=== PATIENT | male | born 1985 | race Caucasian/White ===

== ENCOUNTER 2022-03-06 00:57 | Inpatient (IN) | payer MEDICAID ==
[~2022-03-06] VITALS: Ht 165.1 cm; Wt 74.8 kg
--- NOTE | 2022-03-06 01:52 | NUR ---
BIBFAMILY TO ER BED 13. AAOX3. NOT IN RESP DISTRESS. AMBULATORY. BROUGHT IN FOR SHAKINESS AFTER PT HAS BEEN BINGE DRIKING FOR THE PAST WEEK. PT'S LAST DRINK WAS AT 1900. PT IS INDEEDNOTD SHAKING. PT IS ALSO CONCERNED OF MULTIPLE LESIONS ON HIS BILAT HAND AND LEG - DRY SCABBY. AWAITING MD FOR EVAL.
--- NOTE | 2022-03-06 02:20 | NUR ---
BLOOD COLLECTED AND SENT TO LAB
--- NOTE | 2022-03-06 02:20 | NUR ---
EMT @ BEDSIDE FOR EKG
--- NOTE | 2022-03-06 02:20 | NUR ---
COVID SWAB DONE AND SENT TO LAB
[2022-03-06] MEDS ORDERED: MULTIVIT W/MINERALS 1 TAB TABLET ONE ×2 (02:23→09:29)
[2022-03-06] MEDS ORDERED: Thiamine 100 MG/ML VIAL ONE ×2 (02:23→05:07)
[2022-03-06] MEDS ORDERED: CHLORDIAZEPOXIDE HCL 25 MG CAPSULE ONE (02:23)
[2022-03-06] MEDS ORDERED: ONDANSETRON HCL/PF 4 MG/2 ML VIAL ONE (02:23)
[2022-03-06] MEDS ORDERED: ONDANSETRON 4 MG TAB.RAPDIS ONE (02:24)
[2022-03-06] MEDS ORDERED: LORAZEPAM INJ 2 MG/ML VIAL ONE (02:24)
[2022-03-06 02:30] LABS: BASOPHILS # (AUTO) 0.1 K/uL (0.0-0.2); EOSINOPHILS % (AUTO) 0.6 % (0.0-6.0); HEMATOCRIT 38 % (39-51); HEMOGLOBIN 12.8 g/dL (13.5-17.5); LYMPHOCYTES # (AUTO) 2.2 K/uL (0.8-4.8); LYMPHOCYTES % (AUTO) 23.6 % (20.0-44.0); MEAN CORPUSCULAR HGB CONC 34 g/dl (31.0-36.0); MEAN CORPUSCULAR VOLUME 85 fL (80-96); MONOCYTES # (AUTO) 0.6 K/uL (0.1-1.30); MONOCYTES % (AUTO) 6.6 % (2.0-12.0); NEUTROPHILS # (AUTO) 6.2 K/uL (1.8-8.9); NEUTROPHILS % (AUTO) 68.2 % (43.0-81.0); PLATELET COUNT (AUTO) 301 K/uL (150-450); RED BLOOD CELL COUNT(AUTO) 4.44 MIL/uL (4.5-6.0); WHITE BLOOD COUNT (AUTO) 9.1 K/uL (4.3-11.0)
[2022-03-06] MEDS ORDERED: CHLORDIAZEPOXIDE HCL 25 MG CAPSULE PO ONE (02:30)
[2022-03-06] MEDS ORDERED: LORAZEPAM INJ 2 MG/ML VIAL IVP ONE (02:30)
[2022-03-06] MEDS ORDERED: ONDANSETRON HCL/PF 4 MG/2 ML VIAL IVP ONE (02:30)
[2022-03-06] MEDS ORDERED: ONDANSETRON 4 MG TAB.RAPDIS PO ONE (02:30)
[2022-03-06] MEDS ORDERED: Thiamine 100 MG in IV D5W 50 ML IV SCH ×2 (02:30→03:00)
[2022-03-06] MEDS ORDERED: MULTIVITAMINS,THERAGRAN 1 UDTAB TABLET PO SCH (02:30)
[2022-03-06] MEDS ORDERED: IV D5 LR 1,000 ML IV ONE (02:30)
[2022-03-06 02:43] LABS: CARBON DIOXIDE 26 mmol/L (21-32); CHLORIDE 100 mmol/L (98-107); CREATININE 0.9 mg/dL (0.6-1.3); GLUCOSE 184 mg/dL (74-106); POTASSIUM 3.6 mmol/L (3.5-5.1); SODIUM SERUM 138 mmol/L (136-145); UREA NITROGEN, BLOOD 11 mg/dL (7-18)
[2022-03-06 02:49] LABS: ALANINE AMINOTRANSFERASE 28 U/L (12-78); ALBUMIN 3.1 g/dL (3.4-5.0); ALCOHOL, BLOOD 299 mg/dL (0-0); ALKALINE PHOSPHATASE 138 U/L (46-116); ASPARTATE AMINOTRANSFERASE 29 U/L (15-37); BILIRUBIN,DIRECT 0.1 mg/dL (0.0-0.2); BILIRUBIN,TOTAL 0.2 mg/dL (0.2-1.0); TOTAL PROTEIN, SERUM 7.1 g/dL (6.4-8.2)
[2022-03-06 02:51] LABS: ACETAMINOPHEN < 2 ug/ml (10-30)
[2022-03-06] MEDS ORDERED: MAGNESIUM HYDROXIDE 30 ML UDC PO PRN (03:00)
[2022-03-06] MEDS ORDERED: ACETAMINOPHEN 325 MG TABLET PO PRN (03:00)
[2022-03-06] MEDS ORDERED: ONDANSETRON HCL/PF 4 MG/2 ML VIAL IVP PRN (03:00)
[2022-03-06] MEDS ORDERED: MAG HYDROX/AL HYDROX/SIMETH 30 ML UDC PO PRN (03:00)
[2022-03-06] MEDS ORDERED: LORAZEPAM INJ 2 MG/ML VIAL IV PRN (03:00)
[2022-03-06] MEDS ORDERED: IV D5/0.45 NACL 1,000 ML IV PRN (03:00)
[2022-03-06] MEDS ORDERED: Z GUARD REMEDY 4 OZ OINT TP PRN (03:00)
[2022-03-06 03:12] LABS: CREATINE KINASE, TOTAL 268 U/L (39-308)
--- NOTE | 2022-03-06 04:22 | NUR ---
CALLED STAT RAD FOR IMAGING READ
[2022-03-06 05:29] LABS: BASOPHILS # (AUTO) 0.1 K/uL (0.0-0.2); BASOPHILS % (AUTO) 1.1 % (0.0-2.0); EOSINOPHILS % (AUTO) 0.8 % (0.0-6.0); HEMATOCRIT 37 % (39-51); HEMOGLOBIN 12.6 g/dL (13.5-17.5); LYMPHOCYTES # (AUTO) 1.4 K/uL (0.8-4.8); LYMPHOCYTES % (AUTO) 20.1 % (20.0-44.0); MEAN CORPUSCULAR HGB CONC 34 g/dl (31.0-36.0); MEAN CORPUSCULAR VOLUME 85 fL (80-96); MONOCYTES # (AUTO) 0.5 K/uL (0.1-1.30); MONOCYTES % (AUTO) 7.5 % (2.0-12.0); NEUTROPHILS # (AUTO) 4.9 K/uL (1.8-8.9); NEUTROPHILS % (AUTO) 70.5 % (43.0-81.0); PLATELET COUNT (AUTO) 287 K/uL (150-450); RED BLOOD CELL COUNT(AUTO) 4.37 MIL/uL (4.5-6.0)
[2022-03-06 05:43] LABS: BILIRUBIN,TOTAL 0.3 mg/dL (0.2-1.0); CALCIUM, SERUM 8.1 mg/dL (8.5-10.1); CREATININE 0.8 mg/dL (0.6-1.3); PHOSPHORUS 4.2 mg/dL (2.5-4.9)
[2022-03-06 05:52] LABS: THYROID STIMULATING HORMONE 3.343 uIU/mL (0.358-3.74)
[2022-03-06] MEDS ORDERED: PANTOPRAZOLE 40 MG VIAL ONE (09:29)
[2022-03-06] MEDS ORDERED: FOLIC ACID 1 MG TABLET ONE (09:29)
[2022-03-06] MEDS: FOLIC ACID 1 MG TABLET PO SCH (09:34)
[2022-03-06] MEDS: MULTIVIT W/MINERALS 1 TAB TABLET PO SCH (09:34)
[2022-03-06] MEDS: PANTOPRAZOLE 40 MG VIAL IV SCH (09:34)
--- NOTE | 2022-03-06 09:42 | NUR ---
BED GIVEN 309-1
--- NOTE | 2022-03-06 10:11 | NUR ---
WOUND CARE CONSULT: PT SEEN FOR CONSULT THAT READ "HAND LESIONS". DRY SCAB NOTED TO RT HAND WITHOUT FLUCTUANCE, TENDERNESS, ERYTHEMA OR DRAINAGE. PT COMPLAINS OF PAINFUL LESIONS ON HIS FEET. FEET NOTED TO HAVE CRUSTED LESIONS AND REDNESS. DPM CONSULT CALLED TO DR HAMPAPUR. PICHARDO IN AGREEMENT WITH PLAN OF CARE.
--- NOTE | 2022-03-06 10:15 | NUR ---
SW met with pt. at bedside for alcohol abuse. The pt. is asleep and not rousable to verbal cues. Per EMR, pt. to be admitted to Med Surg. SW will follow up at a later time.
--- NOTE | 2022-03-06 12:15 | NUR ---
KEYSMITH NOTES PATIENT ADMITTED FROM ER , REPORT GIVEN BY ASA LO. ALERT ORIENTED X 4, CALM, NO TREMORS NOTED. NO ACUTE DISTRESS NOTED, BREATHING UNLABORED.ORIENTED TO THE ROOM. SAFETY PRECAUTIONS IN PLACE. BED IN LOWEST LOCKED POSITION, HOB ELEVATED, SIDE RAILS UP X2. CALL LIGHT WITHIN REACH. WILL CONTINUE TO MONITOR ACCORDINGLY.
[2022-03-06 16:00] VITALS: BP 106/68
[2022-03-06] MEDS: CLOTRIMAZOLE/BETAMETASONE DIPROPIONATE 15 GM TUBE TP SCH (17:47)
--- NOTE | 2022-03-06 19:00 | NUR ---
RN CLOSING NOTES PATIENT ALERT ORIENTED X 4, CALM, NO TREMORS NOTED. NO ACUTE DISTRESS NOTED, BREATHING UNLABORED.HEAD OF BED ELEVATED. NEEDS ATTENDED AND ANTICIPATED. SAFETY PRECAUTIONS IN PLACE. BED IN LOWEST LOCKED POSITION, HOB ELEVATED, SIDE RAILS UP X3. CALL LIGHT WITHIN REACH. WILL ENDORSE TO NIGHT NURSE FOR CONTINUITY OF CARE.
--- NOTE | 2022-03-06 19:39 | NUR ---
RN CRISTOPHER NOTES PATIENT ALERT ORIENTED X 4, CALM, NO TREMORS NOTED.ON RM AIR CHAUNCEY WELL. NO SIGN SOB/DISTRESS NOTED. BREATHING EVEN UNLABORED.RAC #18G INTACT/PATENT. SAFETY PRECAUTIONS IN PLACE. BED IN LOWEST LOCKED POSITION, HOB ELEVATED, SIDE RAILS UP X3. CALL LIGHT WITHIN REACH. WILL CONTINUE TO MONITOR.
[2022-03-06 20:00] VITALS: BP 121/66
[2022-03-07] VITALS: BP 125/67
[2022-03-07 04:00] VITALS: BP 102/62
--- NOTE | 2022-03-07 07:08 | NUR ---
RN CLOSING NOTES TELE. PATIENT BED ALERT ORIENTED X 4, CALM,ON RM AIR CHAUNCEY WELL. NO SIGN SOB/DISTRESS NOTED. BREATHING EVEN UNLABORED.IV LINE RAC #18G INTACT/PATENT. NO TREMOR NOTED.SAFETY PRECAUTIONS IN PLACE. BED IN LOWEST LOCKED POSITION, HOB ELEVATED, SIDE RAILS UP X3. CALL LIGHT WITHIN REACH. WILL ENDORSED
[2022-03-07 08:00] VITALS: BP 114/77
--- NOTE | 2022-03-07 09:26 | NUR ---
WOUND CARE CONSULT/FOLLOW UP: RECEIVED SECOND CONSULT FOR SCAB ON RT HAND. SCAB IS DRY, NO DRAINAGE, ERYTHEMA OR TENDERNESS NOTED. OBSERVE AREA DAILY. WILL SEE PRN.
[2022-03-07] MEDS: MULTIVIT W/MINERALS 1 TAB TABLET PO SCH (10:24)
[2022-03-07] MEDS: THIAMINE HCL 100 MG TABLET PO SCH (10:24)
[2022-03-07] MEDS: PANTOPRAZOLE 40 MG VIAL IV SCH (10:24)
[2022-03-07] MEDS: FOLIC ACID 1 MG TABLET PO SCH (10:24)
[2022-03-07] MEDS: CLOTRIMAZOLE/BETAMETASONE DIPROPIONATE 15 GM TUBE TP SCH ×2 (10:34→17:05)
[2022-03-07 12:00] VITALS: BP 122/68
--- NOTE | 2022-03-07 12:37 | NUR ---
"JAZMYNE Note: Pt. Is a 36-year-old male who demonstrates adequate insight to the reason for hospitalization. Per pt., he presents to the hospital for ETOH. Pt. was oriented x3, alert, and cooperative. During interview, pt. was capable of following directions and appeared unkempt. Pt.s speech was at a normal rate and pt.s mood was elevated. Pt. reported no hx of mental health, denies suicidal ideation, or homicidal ideation. Pt. denies auditory hallucinations, visual hallucinations, paranoia, or delusions. SW explored pt.s living situation. Per pt., he was staying at a rehab facility [unknown name], but prior to the facility, he was staying with sisters [[address] [place] [address]]. Pt. stated that he has been drinking for a month straight after he got out of the facility. Pt. is ambulatory and is able to care for himself. Plan: SW provided available resources and pt. accepted. Upon discharge, pt. will speak with his sisters to see if he can go back home. SW provided pt. with a list of shelters. Resources Provided: Year-round shelters: [facility] [place] [address] [place], [place] [phone] ; [facility] [place] [address] [place] [address]; [place] [facility] [id number] [facility] [address] Winter Shelters: [facility] Provider: [facility] Address: [address] [facility], [address] # of Beds: 47 Population Served: [place] 6 | [facility] [place] Krystyna Buenrostro [place] Provider: [facility] Last Address: [address], [address] # of Beds: 66 Population Served: [facility] [place] Provider: [facility] Serve Address: [address] [facility], [address] # of Beds: 56 Population Served: [facility] [place] Provider: / [facility] Address: [address] [facility], [address] # of Beds: 49 Population Served: [place] SPA 8 | [place] Provider: First to Serve Address: [address] [facility]iana Brady # of Beds: 37 Population Served: [place] Hygiene: [facility]: [address] [place] ; [facility] [address] [facility] ; [facility] [address]30 [facility] . Food Resources: [place] [facility] at [facility]- [address] [place]; Meet Each Need with Dignity ([facility]) [address] [facility]; [facility] Food [facility] [address] [facility]; [facility] 9[address] [facility]. Mental Health resources provided: [facility] [address] [place], [place] [address] ; [facility] Mental Health [place] Inc[employer] [address] [facility] [address], [place], [place] [phone] ; [facility] [address] [facility] [place], [place] [phone] ; [facility] [address] [place], [place] [phone] Healthcare Clinics: [facility] [address] [facility], [address] [place]. [place] ; [facility] [address] [facility] [address] [place] [address]; [facility] [address] [facility]. [place] [phone] Counseling--Outpatient [facility] [address] [facility], [address] [place], [place] [id number] (Specializes in in-depth psychotherapy for emotional distress: anxiety, depression, interpersonal conflicts, life transitions, childhood abuse) [facility] [address] [place] [address] (Assist with solving problem marital difficulties, separation & divorce, aging parents, & grief, chronic & terminal illness) [facility] [address] [place] [address] (Deal with loss & grief, anxiety, marital difficulties) Homebound/Mental Health Services [address] [facility] [facility] [address] [place], [place] [phone] (Provide in-home mental services to people who are incapable of leaving their homes) Organization for Needs of the Elderly Senior Service/Resource Center [address] [place] [address] [facility] [address] [place], [place] [phone] PSYCHIATRIC OUTPATIENT SERVICES [facility] Partial Hospitalization and Intensive Outpatient Program (Managed Care and [place] Only)[address] Yobani DunlapNort[facility] [phone] [facility] Partial Hospitalization and Outpatient [id number] [facility] [address] [place], [place] [phone] [facility] Mental Health [place] [id number] [facility] [address] [place], [place] [phone] [facility] Partial Hospitalization and Outpatient Bzldoax39737 [place], [phone] Substance Abuse resources provided included: [facility] Substance Abuse Self-Helpline (SAS) ; CRI -HELP [address] [facility]. [place] [address] ; [facility] [address] [facility] [address] ; [facility] [address] [place] [facility] [address] ; [facility] [address] [facility] [phone] ; [facility] [address] Deniz Kennedy [facility] [phone] ; [facility] [address] [facility] [phone] ; [facility] Substance Abuse Helpline(SAS)[facility] ; [facility] ; [facility] [place]; [facility]; [facility] [place]; I-ADARP Inter [facility] Deniz Kennedy; [facility] [place]; [facility] [place]; [facility] [place]; [facility], [facility]. [place]; Alcoholics Anonymous -SFV; Le-Nweu-Reyagjd ; Marijuana Anonymous -SFV; Narcotics Anonymous www.na.org;"
[2022-03-07 16:00] VITALS: BP 116/75
--- NOTE | 2022-03-07 17:47 | NUR ---
PT. WITH OUT THE SHAKES,FAMILY IN TO VISIT.SEEN BY WD. NURSE AND .
--- NOTE | 2022-03-08 06:48 | NUR ---
RN CLOSING NOTES TELE. PATIENT BED ALERT ORIENTED X 4,ON RM AIR CHAUNCEY WELL. NO SIGN SOB/DISTRESS NOTED. BREATHING EVEN UNLABORED.IV ACCESS RAC #18G INTACT/PATENT. NO TREMOR NOTED.SAFETY PRECAUTIONS IN PLACE. BED IN LOWEST LOCKED POSITION, HOB ELEVATED, SIDE RAILS UP X3. CALL LIGHT WITHIN REACH. WILL ENDORSED TO NEXT SHIFT.
--- NOTE | 2022-03-08 07:35 | NUR ---
ms rn received on bed, awake,alert,oriented x4,not in any form of distress, respiration even and unlabored,no sob noted, will monitor patient.
[2022-03-08 08:00] VITALS: BP 124/75
--- NOTE | 2022-03-08 08:00 | NUR ---
ms rn was seen by dr. abdirahman price/ [place] to go home today,all needs attended.
[2022-03-08] MEDS: CLOTRIMAZOLE/BETAMETASONE DIPROPIONATE 15 GM TUBE TP SCH ×2 (09:00→17:18)
[2022-03-08] MEDS ORDERED: PANTOPRAZOLE 40 MG TABLET.DR PO SCH (09:00)
--- NOTE | 2022-03-08 09:45 | NUR ---
ms lu breakfast served,due meds given,tolerated well.
[2022-03-08] MEDS: THIAMINE HCL 100 MG TABLET PO SCH (09:59)
[2022-03-08] MEDS: FOLIC ACID 1 MG TABLET PO SCH (10:00)
[2022-03-08] MEDS: MULTIVIT W/MINERALS 1 TAB TABLET PO SCH (10:00)
[2022-03-08] MEDS ORDERED: Thiamine HCL PO (10:28)
[2022-03-08] MEDS ORDERED: Multivit W/Minerals PO (10:28)
[2022-03-08] MEDS ORDERED: Folic Acid PO (10:28)
[2022-03-08 12:00] VITALS: BP 100/72
[2022-03-08 16:00] VITALS: BP 109/63
--- NOTE | 2022-03-08 18:29 | NUR ---
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
--- NOTE | 2022-03-08 19:00 | NUR ---
ms rn patient went home accompanied by sister,all needs attended.
== END 2022-03-08 19:00 | disposition home or self-care (01) | DRG 775 ==
LOC: ER 01:02 → TRANSITION 04:52 → TELE 11:39
PROVIDERS: ADMIT Internal Medicine; ATTEND Internal Medicine
DX: F10.239 Alcohol dependence with withdrawal, unspecified (principal); F10.229 Alcohol dependence with intoxication, unspecified; G92.9 Unspecified toxic encephalopathy; E43 Unspecified severe protein-calorie malnutrition; E88.09 Other disorders of plasma-protein metabolism, not elsewhere classified; B35.3 Tinea pedis; M79.671 Pain in right foot; Z20.822 Contact with and (suspected) exposure to COVID-19; Y90.8 Blood alcohol level of 240 mg/100 ml or more; R26.9 Unspecified abnormalities of gait and mobility; M79.672 Pain in left foot
CPT/HCPCS: 36415; 71045-TC; 73030-TC; 73060-TC; 80048-TC; 80053-TC; 80076-TC; 82550-TC; 83735-TC; 84100-TC; 84443-TC; 85025-TC; 87081-TC; C9113; C9803; G0378; G0480; J2060; J2405; J3411; J3490; J7060; Q0162

== ENCOUNTER 2022-03-14 22:45 | Emergency (ER) | payer MEDICAID ==
[~2022-03-14] VITALS: Ht 165.1 cm; Wt 74.8 kg
[~2022-03-14 22:45] MED LIST: Folic Acid PO; Multivit W/Minerals PO; Thiamine HCL PO
[2022-03-15 02:45] VITALS: BP 141/79
--- NOTE | 2022-03-15 02:59 | NUR ---
PT BIBSELF C/O ABD PAIN X 1 WEEK, PT STATES HE HAS BEEN DRINKING, BOTTLE OF VODKA. PT A/O X 4, RR EVEN AND UNLABORED NO SOB NOTED. PT AFEBRILE. TAKEN TO ER BED 12. PT CONNECTED TO MONITORS.
[2022-03-15] MEDS ORDERED: IV NS 0.9% 1,000 ML IV ONE (03:00)
[2022-03-15 03:11] LABS: BASOPHILS # (AUTO) 0.1 K/uL (0.0-0.2); BASOPHILS % (AUTO) 1.1 % (0.0-2.0); EOSINOPHILS % (AUTO) 0.3 % (0.0-6.0); HEMATOCRIT 39 % (39-51); HEMOGLOBIN 13.5 g/dL (13.5-17.5); LYMPHOCYTES # (AUTO) 1.9 K/uL (0.8-4.8); LYMPHOCYTES % (AUTO) 24.1 % (20.0-44.0); MEAN CORPUSCULAR HGB CONC 34 g/dl (31.0-36.0); MEAN CORPUSCULAR VOLUME 85 fL (80-96); MONOCYTES # (AUTO) 0.7 K/uL (0.1-1.30); MONOCYTES % (AUTO) 8.4 % (2.0-12.0); NEUTROPHILS # (AUTO) 5.1 K/uL (1.8-8.9); NEUTROPHILS % (AUTO) 66.1 % (43.0-81.0); PLATELET COUNT (AUTO) 291 K/uL (150-450); RED BLOOD CELL COUNT(AUTO) 4.62 MIL/uL (4.5-6.0); WHITE BLOOD COUNT (AUTO) 7.8 K/uL (4.3-11.0)
--- NOTE | 2022-03-15 03:25 | NUR ---
blood work sent to lab
[2022-03-15 03:51] LABS: POTASSIUM 3.2 mmol/L (3.5-5.1)
[2022-03-15 04:04] LABS: ALBUMIN 3.4 g/dL (3.4-5.0); BILIRUBIN,DIRECT 0.1 mg/dL (0.0-0.2); BILIRUBIN,TOTAL 0.4 mg/dL (0.2-1.0); TOTAL PROTEIN, SERUM 7.8 g/dL (6.4-8.2)
[2022-03-15] MEDS ORDERED: KETOROLAC TROMETHAMINE INJ 30 MG/ML VIAL ONE (04:59)
[2022-03-15] MEDS ORDERED: MAG HYDROX/AL HYDROX/SIMETH 30 ML UDC PO ONE (05:00)
[2022-03-15] MEDS ORDERED: LIDOCAINE VISCOUS 2% UD 15 ML UDC MM ONE (05:00)
[2022-03-15] MEDS ORDERED: KETOROLAC TROMETHAMINE INJ 30 MG/ML VIAL IV ONE (05:00)
[2022-03-15] MEDS ORDERED: MAG355OR18 PO (05:45)
[2022-03-15] MEDS ORDERED: ONDA4TAB11 PO (05:45)
[2022-03-15] MEDS ORDERED: FAMO-131 PO (05:45)
--- NOTE | 2022-03-15 05:54 | NUR ---
Patient discharged to home in stable condition. Rx and Written and verbal after care instructions given. Patient verbalizes understanding of instruction.
== END 2022-03-15 05:54 | disposition home or self-care (01) ==
LOC: ER 22:50
DX: K29.70 Gastritis, unspecified, without bleeding (principal); F10.10 Alcohol abuse, uncomplicated; Z79.899 Other long term (current) drug therapy; Y90.9 Presence of alcohol in blood, level not specified
CPT/HCPCS: 36415; 80048; 80076; 82550; 82553; 83690; 85025; 96361; 96374; 99283; J1885; J7030

== ENCOUNTER 2022-06-22 09:06 | Inpatient (IN) | payer SELFPAY ==
[~2022-06-22] VITALS: Ht 165.1 cm; Wt 70.8 kg
[~2022-06-22 09:06] MED LIST changes: +FAMO-131 PO; +MAG355OR18 PO; +ONDA4TAB11 PO
[2022-06-22] MEDS ORDERED: ONDANSETRON HCL/PF 4 MG/2 ML VIAL ONE (09:21)
[2022-06-22] MEDS ORDERED: PANTOPRAZOLE 40 MG VIAL ONE (09:21)
--- NOTE | 2022-06-22 09:25 | NUR ---
[id number] C/O ABDOMINAL PAIN, NAUSEA AND VOMITING SINCE THIS MORNING P/S 07/30, ADMITS TO DRINKING EVERYDAY FOR 2WKS, LAST DRINK YESTERDAY. THE PATIENT IS IN ROOM AIR AND DENIES SOB. RESPIRATION REGULAR AND UNLABORED. THE PATIENT IS ATTACHED TO THE MONITOR. WARM BLANKET PROVIDED FOR COMFORT. WILL CONTINUE TO MONITOR THE PATIENT.
[2022-06-22] MEDS ORDERED: ONDANSETRON HCL/PF 4 MG/2 ML VIAL IVP ONE (09:30)
[2022-06-22] MEDS ORDERED: LORAZEPAM INJ 2 MG/ML VIAL IV ONE (09:30)
[2022-06-22] MEDS ORDERED: IV NS 0.9% 1,000 ML BAG IV ONE (09:30)
[2022-06-22] MEDS ORDERED: PANTOPRAZOLE 40 MG VIAL IV ONE (09:30)
--- NOTE | 2022-06-22 09:30 | NUR ---
TECH AT BEDSIDE FOR US
--- NOTE | 2022-06-22 09:39 | NUR ---
COVID SWAB COLLECTED AND SENT TO LAB
--- NOTE | 2022-06-22 09:41 | NUR ---
TECH AT BEDSIDE FOR EKG
[2022-06-22] MEDS ORDERED: LORAZEPAM INJ 2 MG/ML VIAL ONE (09:43)
[2022-06-22 09:50] LABS: BASOPHILS % (AUTO) 0.2 % (0.0-2.0); EOSINOPHILS % (AUTO) 0.2 % (0.0-6.0); HEMATOCRIT 38 % (39-51); HEMOGLOBIN 12.9 g/dL (13.5-17.5); LYMPHOCYTES # (AUTO) 0.2 K/uL (0.8-4.8); LYMPHOCYTES % (AUTO) 1.2 % (20.0-44.0); MEAN CORPUSCULAR HGB CONC 34 g/dl (31.0-36.0); MEAN CORPUSCULAR VOLUME 84 fL (80-96); MONOCYTES # (AUTO) 0.7 K/uL (0.1-1.30); MONOCYTES % (AUTO) 3.9 % (2.0-12.0); NEUTROPHILS # (AUTO) 17.2 K/uL (1.8-8.9); NEUTROPHILS % (AUTO) 94.5 % (43.0-81.0); PLATELET COUNT (AUTO) 110 K/uL (150-450); RED BLOOD CELL COUNT(AUTO) 4.59 MIL/uL (4.5-6.0); WHITE BLOOD COUNT (AUTO) 18.1 K/uL (4.3-11.0)
[2022-06-22 10:23] LABS: CALCIUM, SERUM 8.7 mg/dL (8.5-10.1); POTASSIUM 2.9 mmol/L (3.5-5.1)
[2022-06-22 10:28] LABS: ALBUMIN 3.5 g/dL (3.4-5.0); BILIRUBIN,DIRECT 0.4 mg/dL (0.0-0.2); BILIRUBIN,TOTAL 1.4 mg/dL (0.2-1.0); TOTAL PROTEIN, SERUM 7.8 g/dL (6.4-8.2)
[2022-06-22 10:57] LABS: OCCULT BLOOD STOOL NEGATIVE (NEGATIVE)
--- NOTE | 2022-06-22 11:34 | NUR ---
ROOM 322-1
[2022-06-22 11:48] LABS: BAND % (MANUAL) 2 % (0.0-5.0); BASOPHILS % (MANUAL) 0 % (0.0-2.0); EOSINOPHILS % (MANUAL) 0 % (0-4); LYMPHOCYTES % (MANUAL) 1 % (16-48); MONOCYTES % (MANUAL) 4 % (0-11.0); NEUTROPHILS % (MANUAL) 93 (42-76)
--- NOTE | 2022-06-22 11:52 | NUR ---
PT REPORT GIVEN TO TERESITA BRAND
--- NOTE | 2022-06-22 12:40 | NUR ---
THE PATIENT IS TRANSFERED TO ROOM 322-1 IN STABLE CONDITION AND PER ACLS POLICY.
[2022-06-22 13:00] VITALS: BP 133/89
--- NOTE | 2022-06-22 13:22 | NUR ---
RN ADMITTING NOTES PATIENT ADMITTED FROM ED VIA GURNEY ACCOMPANIED BY TWO ER STAFF @9473. PATIENT A/Ox4 ABLE TO MAKE NEEDS KNOWN, SLOVAK SPEAKING. C/O OF ABDOMINAL PAIN WITH N&V. VS STABLE, LOW GRADE FEVER PRESENT 100.3, MD NOTIFIED. PATIENT IS ON ROOM AIR, NO S/S OF RESPIRATORY DISTRESS. IV ACCESS ON LAC #18 INTACT AND PATENT. ON TELE MONITORING SHOWING SINUS HR 81. NO COMPLAINED OF CARDIAC DISTRESS. FULL BODY ASSESSMENT COMPLETED: CARDIAC HEART SOUNDS WITHIN NORMAL LIMITS, RESPIRATORY LUNG SOUNDS WITHIN NORMAL LIMITS, GI/ CONTINENT USES URINAL, AND SKIN INTACT. ORIENTED TO UNIT AND STAFF, SHOWN HOW TO USE CALL LIGHT. SAFETY MEASURES IN PLACE: BED LOCKED AND IN LOWEST POSITION, CALL LIGHT WITHIN REACH, SIDE RAILS UPx2, HOB ELEVATED. WILL CONTINUE TO MONITOR.
[2022-06-22] MEDS ORDERED: ONDANSETRON HCL/PF 4 MG/2 ML VIAL IVP PRN (13:30)
[2022-06-22] MEDS ORDERED: MAG HYDROX/AL HYDROX/SIMETH 30 ML UDC PO PRN (13:30)
[2022-06-22] MEDS ORDERED: MAGNESIUM HYDROXIDE 30 ML UDC PO PRN (13:30)
[2022-06-22] MEDS ORDERED: Z GUARD REMEDY 4 OZ OINT TP PRN (13:30)
[2022-06-22] MEDS: THIAMINE HCL 100 MG TABLET PO SCH (13:59)
[2022-06-22] MEDS: FOLIC ACID 1 MG TABLET PO SCH (13:59)
[2022-06-22] MEDS: IV NS 0.9% 1,000 ML IV PRN (14:00)
[2022-06-22 15:33] VITALS: BP 133/89
[2022-06-22 16:00] VITALS: BP 143/88
--- NOTE | 2022-06-22 16:04 | NUR ---
SS consult: SS Consult requested foralcohol abuse. The pt. is a 37-year-old male patient who was BIBRA due to withdrawal. Per EMR, pt. has been drinking for the past 5 to 6 days, drinking 1 bottle of vodka every day Upon SS consult, the pt. is Alert & Oriented x 4 and makes good eye contact. The pt. appears unkempt is malodorous and remains calm & cooperative. Pt. denies SI/HI and denies hallucinations. The pt.s thought process and thought content are WNL. The pt. has anxious mood & distressed affect. Pt.s speech and thought process are WNL. NARCISO explored pt.s living situation. Patient stated that he has been living in his sister's home[[address] [facility] [address]; [phone]]. NARCISO explored pt.s mental health Hx. Patient denies any diagnosis or taking any medication for his mental health. NARCISO explored pt.s drug & ETOH use. Pt. denies any current drug use but states he drinks a bottle of vodka daily. NARCISO offered the pt. referral to a rehab and pt. refused and states his family as one set up for him called [facility] in the [place] [address]. Per pt. he is ambulatory and independent with all his ADLs. NARCISO explored pt.s support system. Pt. states his Sister, [place] SOLIZ [phone] IS HIS SUPPORT SYSTEM. Plan: NARCISO provided pt. with addiction resources and pt. accepted them. Per pt., upon discharge his siblings will pick him up and take him alcohol rehab center: [facility] in the [place] [address]. Per pt., his Sister, [place] SOLIZ [phone] be able to provide transportation. NARCISO notified pt.'s nurse. ADDICTION RESOURCES For Drugs and Alcohol [facility] sober living Referrals For Rehabilitation once sober Address:[address] [place] [address] [facility] Rehabilitation Program [address] [place] [address] Detox/residential [facility] Substance Abuse Helpline ([facility]) Outpatient, residential treatment, recovery support for youth/adults [facility] www.actionfamilycounsMuxlim.Manufacturers' Inventory [facility] Teen programs for drug/alcohol education and support Tami Vides Chente. Program for adults, sliding scale provides support and education [facility] www.RespiricsKonteratrinity health.org [place]; Detox/residential treatment programs; transition to sober living [facility] www.cri-help.org [place]; Outpatient and residential treatment programs; transition to sober living [facility] TEL: [phone] I-ADARP Inter [place] [facility] Deniz Kennedy; Outpatient education and supportive programs for teens and adults [facility] www.[facility]asiswomensrecorange [facility].org [place]; Residential treatment and work program for females only [facility] www.[facility].org [place]: Outpatient/residential treatment program for teens and young adults [facility] www.[facility].org [place] Detox, inpatient, outpatient for adults and youth [facility], [facility]. [place]; Outpatient programs and referrals to community residential programs. Alcoholics Anonymous -SFV information and meeting and scheduleswww.aa-intergroup.org Gd-Opnz-Anzvrjd https://al-anon.org/ [place] support groups for family of alcoholics. Marijuana Anonymous www.madistrict6.org -SFV listing of meetings Narcotics Anonymous www.na.org SOBER LIVING RESOURCES The [facility] Living [facility] www.soberhousing.net A non-profit agency that provides resources to recovery and sober living homes throughout [facility], [facility] Sober Living Homes: A Work in ProgressAlexandria Susan Leal Recovery Advocates, [place] Sobriety [facility] Womens Sober Living Homes: [facility] x [phone] My New BeginningALEXIA [facility], [place] [facility], [place] Sober Living Homes: [facility] Counseling--Outpatient [facility] [address] [facility] [place] [address] (Specializes in in-depth psychotherapy for emotional distress: anxiety, depression, interpersonal conflicts, life transitions, childhood abuse) [facility] [address] [place] [address] (Assist with solving problem marital difficulties, separation & divorce, aging parents, & grief, chronic & terminal illness) [facility] [address] [place] [address] (Deal with loss & grief, anxiety, marital difficulties) Homebound/Mental Health Services [address] [place] [address] (Provide in-home mental services to people who are incapable of leaving their homes) Organization for Needs of the Elderly Senior Service/Resource Center [address] [place] [address] [facility] [address] [place] [address] Mental Health Services Esperanza Curtis [address] [place] [address] Services: Outpatient therapy for children, teens, young adults, adults, older adults, and families; Psychiatric services, medication support Psychiatric Outpatient Services [facility] Partial Hospitalization and Intensive Outpatient Program (Managed Care and [place] Only)[address] [facility] [phone] [facility] Partial Hospitalization and Outpatient [address] [place], [place] [phone] [facility] [address] [place], [place] [phone] [facility] Partial Hospitalization and Outpatient Jiswhjb48631 Emel[facility] Deniz Kennedy, [phone] Crisis and Hotline Telephone Numbers 24-Hour service unless stated [place] Crisis Hotlines: [employer] [facility] Mental Health/Crisis Line........[phone] Suicide Prevention Center (24 Hours).......316.485.1830 Suicide Prevention Crisis Center.......[phone] (24 Hours) Assaults Against Women Hotline.........779.802.2920 (24 Hours -- [facility]) Women and Children Crisis Snf...........[phone] (24 Hours) Child Abuse Hotline............587.896.3607 [facility] Childrens Services Rape Treatment Center (24 Hours)..........[phone] Alcoholics Anonymous (24 Hours)..........868.813.5637 Cocaine Anonymous (24 Hours)............226.630.1453 Narcotics Anonymous (24 Hours)..........[phone] [address] [facility] [address], [place] [address]
[2022-06-22] MEDS: LORAZEPAM INJ 2 MG/ML VIAL IV PRN (16:19)
[2022-06-22] MEDS: ACETAMINOPHEN 325 MG TABLET PO PRN (16:19)
[2022-06-22] MEDS: CHLORDIAZEPOXIDE HCL 25 MG CAPSULE PO SCH (16:19)
[2022-06-22] MEDS: POTASSIUM CHLORIDE 20 MEQ TAB.PRT.SR PO SCH ×3 (16:19→18:26)
[2022-06-22] MEDS ORDERED: CEFTRIAXONE 2 G in IV D5W 100 ML IV SCH (18:00)
[2022-06-22] MEDS: VANCOMYCIN HCL 0.75 GM in IV D5W 250 ML IV SCH (18:38)
--- NOTE | 2022-06-22 18:42 | NUR ---
DRY HEAT CABINET ATTENDANT CLOSING NOTES PATIENT RESTING IN BED, RESPONDS TO VERBAL AND TACTILE STIMULI. A/Ox4, INDONESIAN SPEAKING. STABLE ON ROOM AIR, NO S/S OF SOB OR RESPIRATORY DISTRESS. IV ACCESS RAC #20 SL. INTACT AND PATENT. PATIENT IS ON TELE MONITORING SHOWING SR 80, NO S/S OF CARDIAC DISTRESS. AMBULATORY WITH ASSIST, USES URINAL OR BATHROOM WITH ASSISTANCE. SKIN IS INTACT. SAFETY MEASURES MAINTAINED: BED LOCKED AND IN LOWEST POSITION, CALL LIGHT WITHIN REACH, HOB ELEVATED, SIDE RAILS UP x2. WILL ENDORSE TO NEXT SHIFT ANY BROOK.
--- NOTE | 2022-06-22 19:30 | NUR ---
LEADITE WORKER OPENING NOTES RECEIVED PATIENT IN BED; AWAKE, ALERT AND ORIENTED X4. GUYANESE SPEAKING, UNDERSTAND SIMPLE GEORGIAN. ON ROOM AIR; TOLERATING WELL. BREATHING EVEN AND NONLABORED. NO SOB NOTED. NOT IN ANY FORM OF RESPIRATORY DISTRESS. NO C/O OF PAIN OR DISCOMFORT AT THIS TIME. WITH IV ACCESS ON LEFT ANTECUBITAL 18g; PATENT AND INTACT INFUSING WITH NS 1L REGULATED @ 75 ML/HR; FLUSHES WELL. NO INFILTRATION NOTED. ABLE TO MAKE NEEDS KNOWN. SAFETY AND FALL PRECAUTIONS IMPLEMENTED: CALL LIGHT AND TABLE WITHIN REACH, SIDE RAILS UP X2, BED IN LOWEST LOCKED POSITION. WILL CONTINUE PLAN OF CARE.
[2022-06-22 20:00] VITALS: BP 149/92
--- NOTE | 2022-06-22 20:59 | NUR ---
RN NOTES RECEIVED CRITICAL LAB RESULT: LACTIC ACID 3.4; KASIA JAVIER MADE AWARE WITH NEW ORDERS MADE AND CARRIED OUT.
[2022-06-22] MEDS ORDERED: IV NS 0.9% 1,000 ML IV ONE (21:30)
[2022-06-22] MEDS: HYDROCODONE/APAP 5/325MG TABLET PO PRN (21:32)
--- NOTE | 2022-06-22 21:38 | NUR ---
RN NOTES IV 0.9% NS 1L GIVEN WIDE OPEN PER ORDER BY KASIA JAVIER NP; PATIENT TOLERATING WELL. WILL CONTINUE TO MONITOR
--- NOTE | 2022-06-22 22:00 | NUR ---
RN NOTES SECURED PATIENT CONSENT FOR CT OF RIGHT ELBOW WITH CONTRAST WITH TERESITA URBAN MY WITNESS AND SLOPE RUNNER.
--- NOTE | 2022-06-22 22:10 | NUR ---
RN NOTES PT PICKED UP BY RADIOLOGY ON DUTY FOR CT.
[2022-06-22] MEDS ORDERED: IV NS 0.9% 250 ML IV ONE (23:08)
[2022-06-22] MEDS ORDERED: IOHEXOL-300 100 ML VIAL IV ONE (23:08)
[2022-06-23] VITALS: BP 131/80
[2022-06-23] MEDS ORDERED: PIPERACILLIN /TAZOBACTAM 3.375 G in IV D5W 50 ML IV SCH ×2
[2022-06-23] MEDS: ACETAMINOPHEN 325 MG TABLET PO PRN ×2 (00:06→08:42)
[2022-06-23] MEDS ORDERED: PIPERACILLIN /TAZOBACTAM 3.375 G VIAL IV ONE ×2 (00:31→06:03)
[2022-06-23] MEDS: ZOSYN IVPB 3.375 G in IV D5W 50ml IV SCH ×2 (00:33→06:09)
--- NOTE | 2022-06-23 00:38 | NUR ---
RN NOTES RECEIVED CRITICAL LAB RESULT: LACTIC ACID 4.8; KASIA JAVIER MADE AWARE WITH NEW ORDER MADE AND CARRIED OUT.
[2022-06-23] MEDS ORDERED: IV NS 0.9% 1,000 ML IV ONE (01:00)
--- NOTE | 2022-06-23 01:05 | NUR ---
RN NOTES IV 0.9% NS 1L GIVEN WIDE OPEN PER ORDER BY KASIA JAVIER NP; PATIENT TOLERATING WELL. WILL CONTINUE TO MONITOR
[2022-06-23] MEDS: VANCOMYCIN HCL 0.75 GM in IV D5W 250 ML IV SCH ×3 (02:37→18:10)
[2022-06-23 04:00] VITALS: BP 150/76
[2022-06-23 06:28] LABS: BASOPHILS % (AUTO) 0.1 % (0.0-2.0); EOSINOPHILS % (AUTO) 0.9 % (0.0-6.0); HEMATOCRIT 37 % (39-51); HEMOGLOBIN 12.1 g/dL (13.5-17.5); LYMPHOCYTES # (AUTO) 0.3 K/uL (0.8-4.8); MEAN CORPUSCULAR HGB CONC 33 g/dl (31.0-36.0); MEAN CORPUSCULAR VOLUME 85 fL (80-96); MONOCYTES # (AUTO) 0.2 K/uL (0.1-1.30); MONOCYTES % (AUTO) 1.9 % (2.0-12.0); NEUTROPHILS # (AUTO) 10.4 K/uL (1.8-8.9); NEUTROPHILS % (AUTO) 94.1 % (43.0-81.0); PLATELET COUNT (AUTO) 80 K/uL (150-450); RED BLOOD CELL COUNT(AUTO) 4.31 MIL/uL (4.5-6.0)
[2022-06-23 06:46] LABS: POTASSIUM 3.2 mmol/L (3.5-5.1)
[2022-06-23 06:49] LABS: MAGNESIUM 1.4 mg/dL (1.8-2.4)
[2022-06-23 06:50] LABS: ALBUMIN 2.5 g/dL (3.4-5.0); BILIRUBIN,DIRECT 0.3 mg/dL (0.0-0.2); BILIRUBIN,TOTAL 0.9 mg/dL (0.2-1.0); TOTAL PROTEIN, SERUM 6.6 g/dL (6.4-8.2)
--- NOTE | 2022-06-23 07:20 | NUR ---
RIGGING HELPER CLOSING NOTES PATIENT IN BED; AWAKE, A/O X4. BOLIVIAN SPEAKING, UNDERSTAND SIMPLE ANGUILLAN. STABLE ON ROOM AIR. BREATHING EVEN AND NONLABORED. NO SOB NOTED. NOT IN ANY FORM OF RESPIRATORY DISTRESS. NO C/O OF PAIN OR DISCOMFORT AT THIS TIME. WITH IV ACCESS ON LEFT ANTECUBITAL 18g; PATENT AND INTACT INFUSING WITH NS 1L REGULATED @ 75 ML/HR; FLUSHES WELL. NO INFILTRATION NOTED. ALL NEEDS MET. SAFETY AND FALL PRECAUTIONS IN PLACE: CALL LIGHT AND TABLE WITHIN REACH, SIDE RAILS UP X2, BED IN LOWEST LOCKED POSITION. ENDORSED TO MORNING SHIFT FOR BROOK.
[2022-06-23 08:00] VITALS: BP 149/64
[2022-06-23] MEDS: PANTOPRAZOLE 40 MG TABLET.DR PO SCH (08:02)
[2022-06-23] MEDS: FOLIC ACID 1 MG TABLET PO SCH (08:40)
[2022-06-23] MEDS: CHLORDIAZEPOXIDE HCL 25 MG CAPSULE PO SCH ×3 (08:40→16:50)
[2022-06-23] MEDS: THIAMINE HCL 100 MG TABLET PO SCH (08:41)
[2022-06-23] MEDS: LORAZEPAM INJ 2 MG/ML VIAL IV PRN (08:48)
[2022-06-23 11:47] LABS: BAND % (MANUAL) 1 % (0.0-5.0); EOSINOPHILS % (MANUAL) 2 % (0-4); LYMPHOCYTES % (MANUAL) 5 % (16-48); MONOCYTES % (MANUAL) 4 % (0-11.0); NEUTROPHILS % (MANUAL) 88 (42-76)
[2022-06-23] MEDS: POTASSIUM CHLORIDE 20 MEQ TAB.PRT.SR PO SCH (12:14)
[2022-06-23] MEDS: Magnesium 1GM/D5W 100ML PREMIX 100 ML IV SCH ×4 (12:15→16:50)
[2022-06-23] MEDS ORDERED: PIPERACILLIN /TAZOBACTAM 3.375 G in IV D5W 100 ML IV SCH (14:00)
[2022-06-23] MEDS ORDERED: K PHOS NEUTRAL 250 MG TABLET PO ONE (15:00)
[2022-06-23 15:59] VITALS: BP 138/80
--- NOTE | 2022-06-23 17:27 | NUR ---
END OF SHIFT SUMMARY A/O X4, ON RA SATURATING WELL AMBULATORY, STEADY GAIT SR-ST ON THE TELEMONITOR Mg 1.4, REPLACED WITH 4g IVPB K 3.2, REPLACED WITH K DUR 40 mEqs PO ATIVAN X1 GIVEN INDEPENDENT WITH REPOSITIONING L AC#18, NS AT 75 ML/HR, INTACT AND PATENT WILL ENDORSE CONTINUITY OF CARE TO ONCOMING SHIFT
--- NOTE | 2022-06-23 19:30 | NUR ---
METEOROLOGICAL ENGINEER NOTE RECEIVED PATIENT IN BED. A/OX4. NO S/S OF APPARENT DISTRESS ON ROOM AIR. C/O 04/29 PAIN ON HIS ARM-- WILL MEDICATE. 2 FAMILY MEMBERS AT BEDSIDE. IV VANCO STILL RUNNING AT THIS TIME. RE-ORIENTED AND ENCOURAGED WITH THE USE OF CALL LIGHT. SAFETY IN PLACE. WILL CONTINUE TO MONITOR.
[2022-06-23 20:00] VITALS: BP_SYST 130; BP_SYST 158; BP_DIAS 65; BP_DIAS 91
[2022-06-23] MEDS ORDERED: CEFTRIAXONE 1 G VIAL ONE (21:34)
[2022-06-23] MEDS: HYDROCODONE/APAP 5/325MG TABLET PO PRN (21:37)
[2022-06-23] MEDS: CEFTRIAXONE 1 G in IV D5W 50 ML IV SCH (21:38)
[2022-06-23] MEDS ORDERED: CLINDAMYCIN 900 MG/6 ML VIAL ONE (23:09)
[2022-06-24] VITALS: BP 139/73
[2022-06-24] MEDS: CLINDAMYCIN 900 MG in IV D5W 50 ML IV SCH ×4 (00:41→21:32)
--- NOTE | 2022-06-24 00:46 | NUR ---
BOTTLING MACHINE OPERATOR NOTE CLINDAMYCIN HANGED LATE. MEDICATION NOT ON THE FLOOR.
[2022-06-24 04:00] VITALS: BP 113/73
--- NOTE | 2022-06-24 04:09 | NUR ---
FLORAL ARRANGER NOTE TYLENOL GIVEN FOR TEMPERATURE OF 102.5. ATIVAN GIVEN, HR GOING UP TO 135 AND PATIENT COMPLAINING OF PAIN. WILL MONITOR.
[2022-06-24 06:27] LABS: CALCIUM, SERUM 8.4 mg/dL (8.5-10.1); CREATININE 0.8 mg/dL (0.6-1.3); MAGNESIUM 2.1 mg/dL (1.8-2.4)
[2022-06-24 06:33] LABS: POTASSIUM 2.6 mmol/L (3.5-5.1)
--- NOTE | 2022-06-24 06:38 | NUR ---
BRICK PAVING CHECKER NOTE- TEMP. RE-CHECK TEMP 99.0, SR 100 BPM.
--- NOTE | 2022-06-24 07:02 | NUR ---
PROGRAM ENGINEER OPENING NOTES RECEIVED PATIENT RESTING IN BED, A/Ox4, NEPALESE SPEAKING. ON ROOM AIR NO S/S OF SOB OR RESPIRATORY DISTRESS. PATIENT IS ON TELEMONITORING SHOWING SINUS RHYTHM 88, NO C/O OF CARDIAC DISTRESS. IV ACCESS L HAND #20 WITH NS 75 ML/HR RUNNING, INTACT AND PATENT. PATIENT IS AMBULATORY AND HAS BATHROOM PRIVILEGE. SKIN ISSUES: R ARM REDNESS. SAFETY MEASURES IN PLACE: BED LOCKED AND IN LOWEST POSITION, SIDE RAILS UP x2, CALL LIGHT WITHIN REACH, HOB ELEVATED. WILL CONTINUE TO MONITOR.
--- NOTE | 2022-06-24 07:29 | NUR ---
needs attended. endorsed to Jasmin for continuity of care plan.
--- NOTE | 2022-06-24 07:31 | NUR ---
needs attended. endorsed to thora for continuity of care plan.
[2022-06-24 08:00] VITALS: BP 100/60
[2022-06-24] MEDS: PANTOPRAZOLE 40 MG TABLET.DR PO SCH (08:16)
[2022-06-24] MEDS: CHLORDIAZEPOXIDE HCL 25 MG CAPSULE PO SCH ×2 (08:46→16:45)
[2022-06-24] MEDS: THIAMINE HCL 100 MG TABLET PO SCH (08:46)
[2022-06-24] MEDS: FOLIC ACID 1 MG TABLET PO SCH (08:46)
[2022-06-24 11:05] LABS: BASOPHILS % (AUTO) 0.3 % (0.0-2.0); EOSINOPHILS % (AUTO) 1.9 % (0.0-6.0); HEMATOCRIT 39 % (39-51); HEMOGLOBIN 12.8 g/dL (13.5-17.5); LYMPHOCYTES # (AUTO) 0.6 K/uL (0.8-4.8); LYMPHOCYTES % (AUTO) 5.7 % (20.0-44.0); MEAN CORPUSCULAR HGB CONC 33 g/dl (31.0-36.0); MEAN CORPUSCULAR VOLUME 86 fL (80-96); MONOCYTES # (AUTO) 0.5 K/uL (0.1-1.30); MONOCYTES % (AUTO) 5.1 % (2.0-12.0); PLATELET COUNT (AUTO) 78 K/uL (150-450); RED BLOOD CELL COUNT(AUTO) 4.51 MIL/uL (4.5-6.0); WHITE BLOOD COUNT (AUTO) 10.3 K/uL (4.3-11.0)
[2022-06-24] MEDS: POTASSIUM CHLORIDE 20 MEQ TAB.PRT.SR PO SCH ×3 (11:20→13:47)
[2022-06-24] MEDS: POTASSIUM CL. PREMIX PERIPHER. 50 ML IV SCH ×2 (11:21→12:47)
[2022-06-24] MEDS ORDERED: MORPHINE SULFATE INJ 2 MG/ML DISP.SYRIN IV PRN (11:30)
[2022-06-24 12:00] VITALS: BP 100/60
[2022-06-24] MEDS: HYDROCODONE/APAP 5/325MG TABLET PO PRN ×2 (12:22→16:44)
--- NOTE | 2022-06-24 12:45 | NUR ---
RN NOTES PATIENT COMPLAINED OF PAIN OF R ARM, PRN NARCO WAS ADMINISTERED @1222, WILL CONTINUE TO MONITOR.
[2022-06-24 13:20] LABS: BAND % (MANUAL) 3 % (0.0-5.0); BASOPHILS % (MANUAL) 0 % (0.0-2.0); EOSINOPHILS % (MANUAL) 0 % (0-4); LYMPHOCYTES % (MANUAL) 6 % (16-48); MONOCYTES % (MANUAL) 5 % (0-11.0); NEUTROPHILS % (MANUAL) 86 (42-76)
[2022-06-24 16:00] VITALS: BP 105/79
--- NOTE | 2022-06-24 16:50 | NUR ---
RN NOTES PATIENT COMPLAINED OF PAIN OF R ARM, PRN NARCO ADMINISTERED @[id number], WILL CONTINUE TO MONITOR.
--- NOTE | 2022-06-24 18:40 | NUR ---
SOAP PRESS FEEDER CLOSING NOTES PATIENT RESTING IN BED WATCHING TV, A/Ox4, MACEDONIAN SPEAKING. STABLE ON ROOM AIR NO S/S OF SOB OR RESPIRATORY DISTRESS. PATIENT IS ON TELEMONITORING SHOWING SINUS TACH 111, NO C/O OF CARDIAC DISTRESS. IV ACCESS L HAND #20 WITH NS 75 ML/HR RUNNING, INTACT AND PATENT. PATIENT IS AMBULATORY AND HAS BATHROOM PRIVILEGE. SKIN ISSUES: R ARM REDNESS. ALL PRESCRIBED MEDICATION ADMINISTERED. SAFETY MEASURES MAINTAINED: BED LOCKED AND IN LOWEST POSITION, SIDE RAILS UP x2, CALL LIGHT WITHIN REACH, HOB ELEVATED. WILL ENDORSE TO NEXT SHIFT ANY BROOK.
--- NOTE | 2022-06-24 19:35 | NUR ---
HELPER TEACHER OPENING NOTES RECEIVED PATIENT IN BED; AWAKE, A/O X4. GEORGIAN SPEAKING, UNDERSTAND SIMPLE TURKMEN. ON ROOM AIR; TOLERATING WELL. BREATHING EVEN AND NONLABORED. NOT IN ANY FORM OF RESPIRATORY DISTRESS. NO C/O PAIN OR DISCOMFORT AT THIS TIME. ON TELEMETRY MONITORING WITH CURRENT READING OF SINUS TACH HR - 109. WITH IV ACCESS ON LEFT HAND 20g; PATENT AND INTACT INFUSING WITH NS 1L REGULATED @ 75 ML/HR; FLUSHES WELL. NO INFILTRATION NOTED. ABLE TO MAKE NEEDS KNOWN. SAFETY AND FALL PRECAUTIONS IMPLEMENTED: CALL LIGHT AND TABLE WITHIN REACH, SIDE RAILS UP X2, BED IN LOWEST LOCKED POSITION. WILL CONTINUE PLAN OF CARE
[2022-06-24 20:00] VITALS: BP 145/69
[2022-06-24] MEDS: CEFTRIAXONE 1 G in IV D5W 50 ML IV SCH (20:10)
[2022-06-25] VITALS: BP_SYST 122; BP_SYST 145; BP_DIAS 69; BP_DIAS 77
[2022-06-25] MEDS: HYDROCODONE/APAP 5/325MG TABLET PO PRN (02:39)
--- NOTE | 2022-06-25 02:40 | NUR ---
RN NOTES PT C/O ABDOMINAL PAIN 03/30. PRN NORCO 5/355 MG GIVEN PO ORDERED; WILL CONTINUE TO MONITOR AND REASSESS PT.
[2022-06-25 04:00] VITALS: BP 114/69
[2022-06-25] MEDS: CLINDAMYCIN 900 MG in IV D5W 50 ML IV SCH ×3 (04:31→21:00)
[2022-06-25] MEDS: IV NS 0.9% 1,000 ML IV PRN (04:54)
[2022-06-25 06:33] LABS: BASOPHILS % (AUTO) 0.2 % (0.0-2.0); EOSINOPHILS % (AUTO) 1.9 % (0.0-6.0); HEMATOCRIT 35 % (39-51); HEMOGLOBIN 11.4 g/dL (13.5-17.5); LYMPHOCYTES % (AUTO) 10.1 % (20.0-44.0); MEAN CORPUSCULAR HGB CONC 33 g/dl (31.0-36.0); MEAN CORPUSCULAR VOLUME 86 fL (80-96); MONOCYTES # (AUTO) 1.1 K/uL (0.1-1.30); MONOCYTES % (AUTO) 11.1 % (2.0-12.0); NEUTROPHILS # (AUTO) 7.4 K/uL (1.8-8.9); NEUTROPHILS % (AUTO) 76.7 % (43.0-81.0); PLATELET COUNT (AUTO) 98 K/uL (150-450); RED BLOOD CELL COUNT(AUTO) 4.02 MIL/uL (4.5-6.0); WHITE BLOOD COUNT (AUTO) 9.7 K/uL (4.3-11.0)
[2022-06-25 06:49] LABS: CALCIUM, SERUM 8.3 mg/dL (8.5-10.1); CREATININE 0.9 mg/dL (0.6-1.3); MAGNESIUM 1.7 mg/dL (1.8-2.4); POTASSIUM 3.2 mmol/L (3.5-5.1)
--- NOTE | 2022-06-25 06:51 | NUR ---
CABIN EQUIPMENT SUPERVISOR CLOSING NOTES PATIENT IN BED; AWAKE, A/O X4. MACEDONIAN SPEAKING, UNDERSTAND SIMPLE SALVADOREAN. STABLE ON ROOM AIR. BREATHING EVEN AND NONLABORED. IN NO ACUTE DISTRESS. NO C/O PAIN OR DISCOMFORT AT THIS TIME. ON TELE MONITORING WITH CURRENT READING OF SINUS TACH HR - 109. WITH IV ACCESS ON LEFT HAND 20g; PATENT AND INTACT INFUSING WITH NS 1L REGULATED @ 75 ML/HR; FLUSHES WELL. NO INFILTRATION NOTED. ALL NEEDS MET. SAFETY AND FALL PRECAUTIONS IN PLACE: CALL LIGHT AND TABLE WITHIN REACH, SIDE RAILS UP X2, BED IN LOWEST LOCKED POSITION. ENDORSED TO MORNING SHIFT FOR BROOK.
--- NOTE | 2022-06-25 07:35 | NUR ---
MANAGER MULTIMEDIA OPENING NOTE Patient in bed, awake. A/O x 4, Stateless speaking. On room air, breathing evenly and unlabored. No SOB or s/s of distress noted. Patient removed IV access on Left hand, will re-insert. On tele monitoring showing SR, HR on the 90's. Safety precautions in place: be din low, locked position; siderails up x 2, call light within reach. Will continue to monitor.
[2022-06-25 08:00] VITALS: BP 124/82
[2022-06-25 08:03] LABS: BAND % (MANUAL) 3 % (0.0-5.0); EOSINOPHILS % (MANUAL) 1 % (0-4); LYMPHOCYTES % (MANUAL) 10 % (16-48); MONOCYTES % (MANUAL) 10 % (0-11.0); NEUTROPHILS % (MANUAL) 76 (42-76)
[2022-06-25] MEDS: THIAMINE HCL 100 MG TABLET PO SCH (08:12)
[2022-06-25] MEDS: PANTOPRAZOLE 40 MG TABLET.DR PO SCH (08:12)
[2022-06-25] MEDS: CHLORDIAZEPOXIDE HCL 25 MG CAPSULE PO SCH ×2 (08:12→16:24)
[2022-06-25] MEDS: FOLIC ACID 1 MG TABLET PO SCH (08:12)
[2022-06-25] MEDS ORDERED: POTASSIUM CHLORIDE 20 MEQ TAB.PRT.SR PO SCH (10:00)
[2022-06-25] MEDS ORDERED: MAGNESIUM OXIDE 400 MG TABLET PO ONE (10:00)
--- NOTE | 2022-06-25 10:00 | NUR ---
RN NOTE IV re-inserted on Left forearm #22, flushes well.
[2022-06-25 12:00] VITALS: BP 116/82
[2022-06-25] MEDS: LORAZEPAM INJ 2 MG/ML VIAL IV PRN (15:34)
--- NOTE | 2022-06-25 15:34 | NUR ---
RN NOTE Patient reports feeling anxious and noted to have agitation. PRN Ativan 1 mg given. Will continue to monitor.
--- NOTE | 2022-06-25 15:42 | NUR ---
RN NOTE Patient pulled out IV again. Re-inserted on LAC #20, flushes well.
[2022-06-25 16:00] VITALS: BP 124/78
[2022-06-25] MEDS: CEFTRIAXONE 1 G in IV D5W 50 ML IV SCH (18:46)
--- NOTE | 2022-06-25 18:52 | NUR ---
MOTOR BUS DRIVER CLOSING NOTE Patient in bed, resting. A/O x 4, Danish speaking. Stable on room air, breathing evenly and unlabored. No SOB or s/s of distress noted. Patient removed IV access on LAC #20 infusing Ns at 75 ml/hr. On tele monitoring showing SR, HR on the 90's; would go sinus tachycardia, HR 120's. All needs attended to. Due meds given. Safety precautions maintained: bed in low, locked position; siderails up x 2, call light within reach. Will endorse to night filler nurse for BROOK.
--- NOTE | 2022-06-25 19:30 | NUR ---
FIRST AID ATTENDANT OPENING NOTE RECEIVED PATIENT IN BED. A/OX4. NO S/S OF APPARENT DISTRESS ON ROOM AIR. C/O 06/30 PAIN ON HIS ARM-- WILL MEDICATE. IV ROCEPHIN STILL RUNNING AT THIS TIME. TELE MONITOR READING SINUS TACHY. RE-ORIENTED AND ENCOURAGED WITH THE USE OF CALL LIGHT. PATIENT VERBALIZING THAT HE WANTS TO GO HOME-- EMOTIONAL SUPPORT AND RE-ASSURANCE GIVEN. SAFETY IN PLACE. WILL CONTINUE TO MONITOR.
[2022-06-25 20:00] VITALS: BP 128/84
[2022-06-25] MEDS: ZOLPIDEM TARTRATE 5 MG TABLET PO PRN (21:38)
--- NOTE | 2022-06-26 | NUR ---
PATIENT REFUSED MIDNIGHT V/S. VERBALIZING WANTING TO SLEEP BECAUSE HE HAS NOT HAD SLEEP SINCE ADMISSION. .
[2022-06-26] MEDS: CLINDAMYCIN 900 MG in IV D5W 50 ML IV SCH ×3 (05:57→20:53)
[2022-06-26 06:40] LABS: CREATININE 0.7 mg/dL (0.6-1.3); POTASSIUM 3.3 mmol/L (3.5-5.1)
--- NOTE | 2022-06-26 07:36 | NUR ---
report given to Sophia for continuity of patient care.
--- NOTE | 2022-06-26 07:55 | NUR ---
WEB MARKETING INTERN OPENING NOTE Patient in bed, asleep. A/O x 4, Lithuanian speaking. On room air, breathing evenly and unlabored. No SOB or s/s of distress noted. IV access on LAC #20 infusing Ns at 75 ml/hr. On tele monitoring showing Sinus tachycardia, HR 102. Safety precautions in place: be din low, locked position; siderails up x 2, call light within reach. Will continue to monitor.
[2022-06-26 08:00] VITALS: BP 113/75
[2022-06-26] MEDS: FOLIC ACID 1 MG TABLET PO SCH (08:26)
[2022-06-26] MEDS: CHLORDIAZEPOXIDE HCL 25 MG CAPSULE PO SCH ×2 (08:26→17:19)
[2022-06-26] MEDS: THIAMINE HCL 100 MG TABLET PO SCH (08:26)
[2022-06-26] MEDS: PANTOPRAZOLE 40 MG TABLET.DR PO SCH (08:26)
[2022-06-26] MEDS ORDERED: POTASSIUM CHLORIDE 20 MEQ TAB.PRT.SR PO SCH (10:00)
[2022-06-26 12:00] VITALS: BP 117/74
[2022-06-26] MEDS: LORAZEPAM INJ 2 MG/ML VIAL IV PRN (14:58)
[2022-06-26 16:00] VITALS: BP 113/68
[2022-06-26] MEDS: CEFTRIAXONE 1 G in IV D5W 50 ML IV SCH (18:40)
--- NOTE | 2022-06-26 19:21 | NUR ---
RN OPENING NOTE PATIENT IN BED, AWAKE. A/O X 3 AT THIS TIME, TALKING ON THE PHONE. PATIENT DOES NOT REPORT ANY PAIN, N/V, OR ANXIOUSNESS AT THIS TIME. ON RA, TOLERATING WELL, NO SOB NOTED. PATIENT'S TELE MONITOR READS SR 92 BPM. LAC 20G NS @75ML/HR ON GOING, INFUSING WELL. R ARM REDNESS NOTED. SAFETY MEASURES IN PLACE: BED LOCKED AND IN LOWEST POSITION, CALL LIGHT WITHIN REACH, SIDE RAILS UP. WILL MONITOR PATIENT CLOSELY.
--- NOTE | 2022-06-26 19:40 | NUR ---
DIRECTOR HEDIS CLOSING NOTE Patient in bed, resting. A/O x 4, French speaking. Stable on room air, breathing evenly and unlabored. No SOB or s/s of distress noted. IV access on LAC #20 infusing NS at 75 ml/hr. On tele monitoring showing SR, HR 88. All needs attended to. Due meds given. Safety precautions in place: be din low, locked position; siderails up x 2, call light within reach. Will endorse to retail shift leader nurse for BROOK.
[2022-06-26 20:00] VITALS: BP 118/75
[2022-06-26] MEDS: ZOLPIDEM TARTRATE 5 MG TABLET PO PRN (20:59)
--- NOTE | 2022-06-26 20:59 | NUR ---
RN NOTE AMBIEN GIVEN TO PATIENT REQUESTED. WILL REASSESS EFFECTIVENESS AT A LATER TIME
[2022-06-27] VITALS: BP 107/78
[2022-06-27] MEDS: IV NS 0.9% 1,000 ML IV PRN (02:07)
--- NOTE | 2022-06-27 03:43 | NUR ---
RN NOTE LAC IV ACCESS LEAKING AND INFILTRATED. INSERTED NEW IV ACCESS ON THE LFA 20 G. PATENT AND FLUSHING WELL.
[2022-06-27] MEDS: CLINDAMYCIN 900 MG in IV D5W 50 ML IV SCH ×2 (05:26→13:11)
--- NOTE | 2022-06-27 07:14 | NUR ---
RN CLOSING NOTE PATIENT IN BED, EYES CLOSED. EASILY AWAKENED. PATIENT IS A/O X 4 ABLE TO MAKE NEEDS KNOWN, TURKMEN SPEAKING PRIMARILY. LFA 20 G PATENT AND INTACT, NS AT 75 ML/HR ONGOING. INFUSING WELL. NO PAIN AT THIS TIME. SAFETY MEASURES IMPLEMENTED. ALL NEEDS MET AND ATTENDED. ALL ORDERS CARRIED OUT. WILL ENDORSE TO DAY SHIFT NURSE FOR BROOK.
--- NOTE | 2022-06-27 07:30 | NUR ---
INCLUSION SPECIAL EDUCATOR OPENING NOTES RECEIVED PATIENT ON BED AWAKE AND A/O X4, GERMAN SPEAKING. ON ROOM AIR TOLERATING WELL. NO SOB NOTED. NOT IN DISTRESS. ON TELE MONITOR CURRENTLY READING SINUS RHYTHM AT 90BPM. WITH NO COMPLAINTS OF PAIN OR DISCOMFORT AT THIS TIME. WITH IV ACCESS AT LEFT FOREARM G20 WITH IVF NS AT 75ML/HR INFUSING WELL. SAFETY MEASURES IN PLACED. CALL LIGHT WITHIN REACH. BED ON LOWEST LOCKED POSITION, SIDE RAILS UP X2. WILL CONTINUE TO MONITOR.
[2022-06-27 08:00] VITALS: BP 110/76
[2022-06-27] MEDS: THIAMINE HCL 100 MG TABLET PO SCH (08:26)
[2022-06-27] MEDS: CHLORDIAZEPOXIDE HCL 25 MG CAPSULE PO SCH (08:26)
[2022-06-27] MEDS: FOLIC ACID 1 MG TABLET PO SCH (08:26)
[2022-06-27] MEDS: PANTOPRAZOLE 40 MG TABLET.DR PO SCH (08:26)
--- NOTE | 2022-06-27 09:06 | NUR ---
WOUND CARE CONSULT: PT PRESENTS WITH RT ARM SWELLING AND REDNESS, PRESENT ON ADMISSION. ARM ELEVATED ON PILLOW. DEFER TO PMD FOR POSSIBLE GENERAL SURGERY CONSULT. WILL SEE PRN.
[2022-06-27] MEDS ORDERED: FOLI0.8T3 PO (11:58)
[2022-06-27] MEDS ORDERED: THIA100T88 PO (11:58)
[2022-06-27] MEDS ORDERED: CIPR500T5 PO (11:58)
[2022-06-27] MEDS ORDERED: SULF1TAB47 PO ×2 (11:58→12:07)
[2022-06-27] MEDS ORDERED: CIPR-262 PO (12:07)
--- NOTE | 2022-06-27 15:18 | NUR ---
BAKERY SUPERVISOR NOTES DISCHARGED PATIENT PER DOCTOR'S ORDER IN STABLE CONDITION. DISCHARGE INSTRUCTION PROVIDED. PATIENT VERBALIZED UNDERSTANDING. DISCHARGE FORM AND BELONGINGS LIST FORM SIGNED BY PATIENT. IV LINE AND WRIST BAND REMOVED. ACCOMPANIED PATIENT TO THE LOBBY VIA WHEELCHAIR AND LEFT WITH HIS SISTER VIA PRIVATE CAR. MD AND CHARGE NURSE ARE AWARE OF THE DISCHARGE.
== END 2022-06-27 15:20 | disposition home or self-care (01) | DRG 872 ==
LOC: ER 09:08 → TELE 12:26
PROVIDERS: ADMIT Nurse Practitioner Family; ATTEND Student in an Organized Health Care Education/Training Program
DX: A41.9 Sepsis, unspecified organism (principal); E87.1 Hypo-osmolality and hyponatremia; L03.113 Cellulitis of right upper limb; F10.139 Alcohol abuse with withdrawal, unspecified; R65.20 Severe sepsis without septic shock; K70.10 Alcoholic hepatitis without ascites; Z20.822 Contact with and (suspected) exposure to COVID-19; Z79.899 Other long term (current) drug therapy; Y90.0 Blood alcohol level of less than 20 mg/100 ml; F43.9 Reaction to severe stress, unspecified; D64.9 Anemia, unspecified; E87.6 Hypokalemia; R73.9 Hyperglycemia, unspecified; E80.6 Other disorders of bilirubin metabolism; D69.6 Thrombocytopenia, unspecified; F41.9 Anxiety disorder, unspecified; R25.1 Tremor, unspecified
CPT/HCPCS: 36415; 71045-TC; 73201-TC; 76705-TC; 80048-TC; 80061-TC; 80076-TC; 80202-TC; 82272-TC; 82728-TC; 82962-TC; 83540-TC; 83605-TC; 83690-TC; 83735-TC; 84100-TC; 85025-TC; 85652-TC; 85730-TC; 86140-TC; 86850-TC; 87040-TC; 87081-TC; 93971-TC; C9113; C9803; G0378; G0480; J0696; J2060; J2270; J2405; J2543; J3370; J3475; J3480; J3490; J7030; J7042; J7050; J7060; Q9967

== ENCOUNTER 2023-01-24 17:08 | Inpatient (IN) | payer MEDICAID ==
[~2023-01-24] VITALS: Ht 167.6 cm; Wt 70.9 kg
[~2023-01-24 17:08] MED LIST changes: -FAMO-131 PO; +FAMO20TA8 PO; +FOLI0.8T3 PO; -Folic Acid PO; -MAG355OR18 PO; -Multivit W/Minerals PO; -ONDA4TAB11 PO; +THIA100T88 PO; -Thiamine HCL PO
[2023-01-24 18:00] VITALS: BP 133/82
[2023-01-24] MEDS ORDERED: Z GUARD REMEDY 4 OZ OINT TP PRN (18:00)
[2023-01-24] MEDS ORDERED: ONDANSETRON HCL/PF 4 MG/2 ML VIAL IVP PRN (18:00)
[2023-01-24] MEDS ORDERED: MAGNESIUM HYDROXIDE 30 ML UDC PO PRN (18:00)
[2023-01-24] MEDS ORDERED: HYDROCODONE/APAP 5/325MG TABLET PO PRN (18:00)
[2023-01-24] MEDS ORDERED: ZOLPIDEM TARTRATE 5 MG TABLET PO PRN (18:00)
[2023-01-24] MEDS ORDERED: MAG HYDROX/AL HYDROX/SIMETH 30 ML UDC PO PRN (18:00)
[2023-01-24] MEDS: PANTOPRAZOLE 40 MG TABLET.DR PO SCH (18:30)
[2023-01-24] MEDS: ACETAMINOPHEN 325 MG TABLET PO PRN (18:30)
[2023-01-24] MEDS: IV NS 0.9% 1,000 ML IV PRN (18:31)
[2023-01-24] MEDS: LORAZEPAM INJ 2 MG/ML VIAL IV PRN (18:31)
--- NOTE | 2023-01-24 19:43 | NUR ---
DRY CHARGE PROCESS ATTENDANT OPENING NOTES - RECEIVED PATIENT AWAKE IN BED. A/O X4, GERMAN SPEAKING. BREATHING EVEN AND NON-LABORED ON ROOM AIR. NOT IN APPARENT DISTRESS. C/O MILD HEADACHE, WAS GIVEN PRN TYLENOL 650MG. ON TELE MONITOR READING SINUS RHYTHM AT 78 BPM. HAS LEFT ANTECUBITAL IV ACCESS #22G WITH NS RUNNING AT 100 ML/HR. NO S/S OF INFILTRATION NOTED. PATIENT IS CONTINENT AND USES THE URINAL. VERBALIZED HE FEELS WEAK BUT ABLE TO WALK. CHEST RASHES NOTED. SAFETY PRECAUTIONS IN PLACE: BED LOCKED AND IN LOW POSITION, SIDE RAILS UP X2, CALL LIGHT WITHIN REACH. WILL CONTINUE PLAN OF CARE.
[2023-01-24 20:00] VITALS: BP 115/76
[2023-01-25] VITALS (7 sets, daily range): BP systolic 122–136; BP diastolic 63–79
[2023-01-25] MEDS: IV NS 0.9% 1,000 ML IV PRN ×2 (05:18→16:09)
[2023-01-25 05:58] LABS: BASOPHILS # (AUTO) 0.1 K/uL (0.0-0.2); BASOPHILS % (AUTO) 0.8 % (0.0-2.0); EOSINOPHILS % (AUTO) 4.3 % (0.0-6.0); HEMATOCRIT 31 % (39-51); HEMOGLOBIN 9.3 g/dL (13.5-17.5); LYMPHOCYTES # (AUTO) 1.2 K/uL (0.8-4.8); MEAN CORPUSCULAR HGB CONC 30 g/dl (31.0-36.0); MEAN CORPUSCULAR VOLUME 68 fL (80-96); MONOCYTES # (AUTO) 0.4 K/uL (0.1-1.30); MONOCYTES % (AUTO) 6.4 % (2.0-12.0); NEUTROPHILS # (AUTO) 4.7 K/uL (1.8-8.9); NEUTROPHILS % (AUTO) 70.5 % (43.0-81.0); PLATELET COUNT (AUTO) 226 K/uL (150-450); RED BLOOD CELL COUNT(AUTO) 4.54 MIL/uL (4.5-6.0); WHITE BLOOD COUNT (AUTO) 6.6 K/uL (4.3-11.0)
[2023-01-25 06:32] LABS: CALCIUM, SERUM 8.1 mg/dL (8.5-10.1); CREATININE 0.8 mg/dL (0.6-1.3); MAGNESIUM 1.7 mg/dL (1.8-2.4); PHOSPHORUS 3.6 mg/dL (2.5-4.9); POTASSIUM 3.2 mmol/L (3.5-5.1)
--- NOTE | 2023-01-25 06:46 | NUR ---
NAIL MAKER CLOSING NOTES - PATIENT SLEEPING, EASY TO AROUSE. ABLE TO VERBALIZE NEEDS. NO SOB OR NOTED. NO ACUTE DISTRESS THROUGHOUT THE NIGHT. DENIES PAIN, N/V, TREMORS. AFEBRILE. ON TELE MONITOR READING SINUS TACHYCARDIA AT 106 BPM. LEFT ANTECUBITAL IV ACCESS INTACT, PATENT AND FLUSHING. ALL DUE MEDS GIVEN AND NEEDS ATTENDED. SAFETY PRECAUTIONS MAINTAINED. WILL ENDORSE TO NEXT SHIFT FOR BROOK.
--- NOTE | 2023-01-25 07:35 | NUR ---
TELE BAND TEACHER OPENING NOTE PATIENT RECEIVED AWAKE AO/4. ON ROOM AIR, BREATHING EVEN AND UNLABORED, NO S/S OF SOB. IV ACCESS LAC #22 INTACT PATENT AND FLUSHING WELL. IV FLUIDS NS 100ML/HR. RUNNING. PATIENT HAS AN EXTERNAL MONITOR CURRENTLY READING SR 70s. FALL AND SAFETY PRECAUTIONS IN PLACE, IN THE LOWEST POSITION AND LOCKED,SR X 2, CALL LIGHT WITHIN REACH.
[2023-01-25] MEDS ORDERED: MAGNESIUM OXIDE 400 MG TABLET PO ONE ×2 (08:00→11:30)
--- NOTE | 2023-01-25 08:35 | NUR ---
WOUND CARE CONSULT: PT PRESENTS WITH RESOLVED RASH/SKIN ISSUE TO CHEST, PRESENT ON ADMISSION. NO TENDERNESS, ERYTHEMA OR DRAINAGE NOTED. WILL SEE PRN.
[2023-01-25] MEDS: PANTOPRAZOLE 40 MG TABLET.DR PO SCH (08:41)
[2023-01-25] MEDS: THIAMINE HCL 100 MG TABLET PO SCH (08:41)
[2023-01-25] MEDS: POTASSIUM CHLORIDE 20 MEQ TAB.PRT.SR PO SCH ×2 (08:41→12:27)
[2023-01-25] MEDS: ACETAMINOPHEN 325 MG TABLET PO PRN (10:28)
[2023-01-25] MEDS ORDERED: POTASSIUM CHLORIDE 20 MEQ TAB.PRT.SR PO ONE ×2 (12:00→16:00)
[2023-01-25] MEDS: LORAZEPAM INJ 2 MG/ML VIAL IV PRN (14:45)
--- NOTE | 2023-01-25 14:45 | NUR ---
RN NOTE PATIENT C/O ANXIETY, ATIVAN 1 MG IVP GIVEN ORDERED.
--- NOTE | 2023-01-25 16:43 | NUR ---
SS consult: SS Consult requested for homelessness & alcohol dependence. The pt. is a 37-year-old male pt. who was admitted to [facility] due to alcohol withdrawal. Upon SS consult, the pt. is Alert & Oriented x 4 and makes good eye contact. The pt. appears unkempt SW conducted interview in Libyan. Pt. has depressed mood & affect. Pt.s speech is slow and clear and thought process is WNL. Pt. remained, calm & cooperative throughout interview. Pt. denies SI/HI and states denies hallucinations. SW explored pt.s living situation. Patient states he is currently experiencing homelessness as he was living with his brother in law but they are not accepting him back. SW explored pt.s drug & ETOH use. Pt. states he uses alcohol only and drink daily about a pint of Vodka. SW provided DRUG & ALCOHOL REHAB REFERRALS and he stated he will use. Per pt. he is ambulatory and independent with all his ADLs. SW explored pt.s support system. Pt. states his family is his support system. Plan: Pt. was agreeable to discharging to skilled nursing. SW provided pt. with the following homeless, outpatient mental health and drug use resources and pt. accepted them. Pt. stated she will use resources to seek skilled nursing placement if needed. Pt. signed homeless waiver and it was placed in the pt.s chart. PPt. needs TAP card upon DC. Year-round shelters: [facility] [address] [place], [place] [phone] ; [facility] [address] [place] [address]; [id number]. [facility] [address] Hygiene: [facility]: [address] [place] ; [facility] [address] [facility] ; [facility] [address] . Food Resources: [place] [facility] at [facility]- [address] [place]; Meet Each Need with Dignity ([facility]) [address] [address]; [facility] [address] [facility]; [facility] [address] [facility]. Mental Health resources provided: [facility] [address] [place], [place] [address] ; [facility] [address], [place] [address] ; [facility] [address] [place] [address] ; [facility] [address] [place], [place] [id number] Healthcare Clinics: [facility] [address] [facility], [address] [place]. [place] ; [facility] [address] [place] [address]; [facility] [address] [facility] [place] [address] [phone] Counseling--Outpatient Located Within [facility] [address], [place] [address] (Specializes in in-depth psychotherapy for emotional distress: anxiety, depression, interpersonal conflicts, life transitions, childhood abuse) [facility] [address] [place] [address] (Assist with solving problem marital difficulties, separation & divorce, aging parents, & grief, chronic & terminal illness) [facility] [address] [place] [address] (Deal with loss & grief, anxiety, marital difficulties) Homebound/Mental Health Services [address] [facility], [address] [place] [address] (Provide in-home mental services to people who are incapable of leaving their homes) [facility] Senior Service[facility] Center [address] [place] [address] [facility] [address] [facility] [place], [place] [phone] PSYCHIATRIC OUTPATIENT SERVICES [facility] Partial Hospitalization and Intensive Outpatient Program (Managed Care and [place] Only) [address] [facility] [address] [facility] Partial Hospitalization and Outpatient Program [address] [place] [address] [facility] [address] [facility] [address] [facility] [address] [place] [address] [facility] Partial Hospitalization and Outpatient Program [address] [place], [place] [phone] Substance Abuse resources provided included: [facility] Substance Abuse Self-Helpline ([facility]) ; [facility] [address] [facility]. [place] [address] ; [facility] [address] [facility] [address] ; [facility] [address] [facility] [id number] ; [facility] [address] [id number] ; [facility] 49[address] [facility] [address] ; [facility] [address] [facility] [phone] ; [facility] Substance Abuse Helpline([facility] ; [facility] ; [facility]; [facility] [place]; [facility] [place]; [facility] Deniz Parsonsjuan luis; [facility]; [facility]; [facility] Joana; [facility], [facility]. Susan Prater; Alcoholics Anonymous -sfv; Margot ; Marijuana Anonymous -SFV; Narcotics Anonymous [email or web address].na.org;
--- NOTE | 2023-01-25 19:00 | NUR ---
TELE SPECIAL INVESTIGATION UNIT INVESTIGATOR CLOSING NOTE PATIENT IS AWAKE IN BED RESTING. AO/4. ON ROOM AIR, BREATHING EVEN AND UNLABORED, NO S/S OF SOB. PATIENT WAS ABLE TO MAKE ALL NEEDS KNOWN AND ATTENDED TO. EXPERIENCED HEADACHE AND ANXIETY DURING SHIFT AND WAS GIVEN PRN MEDICATION TO DECREASE SYMPTOMS OF ALCOHOL WITHDRAWAL. SCHEDULED MEDICATION WAS ADMINISTERED. IV ACCESS LAC #22 REMAINS, INTACT PATENT AND FLUSHING WELL. IV FLUIDS NS 100ML/HR. RUNNING. PATIENT HAS AN EXTERNAL MONITOR CURRENTLY READING SR 84. FALL AND SAFETY PRECAUTIONS IN PLACE, IN THE LOWEST POSITION AND LOCKED,SR X 2, CALL LIGHT WITHIN REACH.
--- NOTE | 2023-01-25 19:50 | NUR ---
BOAT CANVAS MAKER INSTALLER OPENING NOTES RECEIVED PATIENT IN BED RESTING AND WATCHING TV. A/O X 4. ON ROOM AIR, BREATHING EVEN AND UNLABORED, NO S/S OF DISTRESS OR SOB NOTED. NO S/S OF PAIN VERBALIZED AT THIS TIME. IV ACCESS LAC #22 RUNNING NS @ 100ML/HR. PATIENT HAS AN EXTERNAL MONITOR CURRENTLY READING SR 84. FALL AND SAFETY PRECAUTIONS IN PLACE WITH BED IN LOWEST LOCKED POSITION. SIDE RAILS X 2. CALL LIGHT AND TRAY WITHIN REACH. WILL CONTINUE TO MONITOR THE PATIENT AND CARRY OUT ACTIVE MD ORDERS.
--- NOTE | 2023-01-25 21:58 | NUR ---
RN NOTES-SARA PATIENT REQUESTER FOR SLEEPING MEDICATION. AMBIEN 5MG GIVEN PRN. WILL CONTINUE TO MONITOR THE PATIENT.
[2023-01-26] VITALS: BP 133/71
[2023-01-26] MEDS: IV NS 0.9% 1,000 ML IV PRN (02:31)
[2023-01-26 04:00] VITALS: BP 108/88
[2023-01-26 06:14] LABS: CALCIUM, SERUM 8.4 mg/dL (8.5-10.1); CREATININE 0.8 mg/dL (0.6-1.3); MAGNESIUM 2.2 mg/dL (1.8-2.4); POTASSIUM 3.8 mmol/L (3.5-5.1)
--- NOTE | 2023-01-26 06:55 | NUR ---
KNOCK UP ASSEMBLER CLOSING NOTES PATIENT IN BED SLEEPING. EASILY BE WAKEN BY VERBAL STIMULI. A/O X 4. ON ROOM AIR, BREATHING EVEN AND UNLABORED, NO S/S OF DISTRESS OR SOB NOTED. NO S/S OF PAIN VERBALIZED AT THIS TIME. IV ACCESS LAC #22 RUNNING NS @ 100ML/HR. PATIENT HAS AN EXTERNAL MONITOR CURRENTLY READING SR @ 75 WITH BBB. FALL AND SAFETY PRECAUTIONS MAINTAINED WITH BED IN LOWEST LOCKED POSITION. SIDE RAILS X 2. CALL LIGHT AND TRAY WITHIN REACH. WILL ENDORSE TO THE NEXT SHIFT.
--- NOTE | 2023-01-26 07:09 | NUR ---
C APPLICATION DEVELOPER OPENING NOTES RECEIVED PATIENT AWAKE IN BED, A/Ox4, TURKISH SPEAKING, ABLE TO MAKE NEEDS KNOWN. ON ROOM AIR, NO S/S OF RESPIRATORY DISTRESS. ON TELE MONITORING SHOWING SR WITH BBB HR 70. NO C/O OF CARDIAC DISTRESS. IV ACCESS LAC #22G RUNNING NS @ 100ML/HR. INTACT AND PATENT. PATIENT CONTINENT USES URINAL, AMB WITH STEADY GAIT. SKIN ISSUES: CHEST RASHES. NO S/S OF TREMORS OR DISTRESS. SAFETY MEASURES IN PLACE: BED LOCKED AND IN LOWEST POSITION, HOB ELEVATED, CALL LIGHT WITHIN REACH, SIDE RAILS UPx2. WILL CONTINUE TO MONITOR.
[2023-01-26 08:00] VITALS: BP 112/72
[2023-01-26] MEDS: PANTOPRAZOLE 40 MG TABLET.DR PO SCH (08:10)
[2023-01-26] MEDS: THIAMINE HCL 100 MG TABLET PO SCH (08:10)
[2023-01-26 12:00] VITALS: BP 122/81
--- NOTE | 2023-01-26 13:41 | NUR ---
GOLF CART REPAIRER NOTES PATIENT D/C TO [facility]. A/Ox4 ABLE TO MAKE NEEDS KNOWN. STABLE ON ROOM AIR, NO S/S OF RESPIRATORY DISTRESS. PATIENT IV ACCESS REMOVED, PRESSURE DRESSING APPLIED. ID BAND REMOVED. ALL LENNOX TEACHINGS AND DISCHARGE INSTRUCTIONS EXPLAINED TO PATIENT. ALL FORMS SIGNED AND FILED INTO CHART. PATIENT REFUSED TO HAVE SKIN ISSUES PHOTOGRAPHED. INFORMATION ON [facility] AND TAP CARD GIVEN TO PATIENT. PATIENT LEFT UNIT VIA WHEELCHAIR ACCOMPANIED BY TERESITA BRAND @12:35. ALL BELONGINGS WITH PATIENT. CHARGE NURSE AND MD AWARE OF DISCHARGE.
== END 2023-01-26 12:35 | disposition home or self-care (01) | DRG 816 ==
LOC: TELE 17:08
PROVIDERS: ADMIT Nurse Practitioner Acute Care; ATTEND Nurse Practitioner Acute Care
DX: T51.0X1A Toxic effect of ethanol, accidental (unintentional), initial encounter (principal); D64.9 Anemia, unspecified; G25.2 Other specified forms of tremor; Y92.89 Other specified places as the place of occurrence of the external cause; F10.139 Alcohol abuse with withdrawal, unspecified; F15.10 Other stimulant abuse, uncomplicated; Z59.00 Homelessness unspecified; E87.6 Hypokalemia; E83.42 Hypomagnesemia
CPT/HCPCS: 36415; 80048-TC; 83735-TC; 84100-TC; 85025-TC; 87081-TC; 97112-TC; 97116-TC; 97530-TC; A4223; G0378; J2060; J7030

== ENCOUNTER → 2023-04-02 | Emergency (ER) | payer MEDICAID ==
[~2023-04-02] VITALS: Ht 165.1 cm; Wt 68.0 kg
[~2023-04-02] MED LIST changes: +ONDANSETRON 4 MG TAB.RAPDIS ONE; +ONDANSETRON 4 MG TAB.RAPDIS SL ONE
[2023-04-02 17:19] VITALS: BP 143/92; TEMP 98
--- NOTE | 2023-04-02 17:20 | NUR ---
[id number] FROM HOME FOR NAUSEA AND VOMITING. ADMITS DRINKING ALCOHOL. THE PATIENT DENIES PAIN. IN ROOM AIR AND DENIES SOB. RESPIRATION REGULAR AND UNLABORED. WILL CONTINUE TO MONITOR THE PATIENT.
== END | disposition left against medical advice (07) ==
LOC: ER 17:22
DX: F10.129 Alcohol abuse with intoxication, unspecified (principal); R11.2 Nausea with vomiting, unspecified; Y90.9 Presence of alcohol in blood, level not specified
CPT/HCPCS: Q0162

== ENCOUNTER 2024-04-11 04:47 | Emergency (ER) | payer MEDICAID, OTHER ==
[~2024-04-11] VITALS: Ht 172.7 cm; Wt 72.6 kg
[~2024-04-11 04:47] MED LIST changes: -ONDANSETRON 4 MG TAB.RAPDIS ONE; -ONDANSETRON 4 MG TAB.RAPDIS SL ONE
[2024-04-11 04:53] VITALS: TEMP 98.2
[2024-04-11] MEDS ORDERED: ACETAMINOPHEN ES 500 MG TABLET ONE (06:35)
[2024-04-11] MEDS ORDERED: ONDANSETRON 4 MG TAB.RAPDIS ONE (06:35)
[2024-04-11] MEDS ORDERED: LORAZEPAM 1 MG TABLET ONE (06:36)
[2024-04-11] MEDS: LORAZEPAM 1 MG TABLET PO ONE (06:41)
[2024-04-11] MEDS: ACETAMINOPHEN ES 500 MG TABLET PO ONE (06:41)
[2024-04-11] MEDS: ONDANSETRON 4 MG TAB.RAPDIS SL ONE (06:42)
[2024-04-11 06:52] VITALS: BP 135/89; O2SAT 96
== END 2024-04-11 06:53 | disposition home or self-care (01) ==
LOC: ER 04:58
DX: F41.9 Anxiety disorder, unspecified (principal); Z79.899 Other long term (current) drug therapy
CPT/HCPCS: 99284; Q0162

== ENCOUNTER 2024-06-08 07:11 | Emergency (ER) | payer OTHER ==
[~2024-06-08] VITALS: Ht 162.6 cm; Wt 74.8 kg
[2024-06-08] MEDS ORDERED: ASPIRIN 325 MG TABLET ONE (08:21)
[2024-06-08 08:32] LABS: BASOPHILS # (AUTO) 0.1 K/uL (0.0-0.2); BASOPHILS % (AUTO) 1.4 % (0.0-2.0); EOSINOPHILS # (AUTO) 0.1 K/uL (0.0-0.7); EOSINOPHILS % (AUTO) 1.8 % (0.0-6.0); HEMATOCRIT 36 % (39-51); HEMOGLOBIN 11.9 g/dL (13.5-17.5); LYMPHOCYTES # (AUTO) 0.5 K/uL (0.8-4.8); LYMPHOCYTES % (AUTO) 9.4 % (20.0-44.0); MEAN CORPUSCULAR HEMOGLOBIN 26 PG (26.0-33.0); MEAN CORPUSCULAR HGB CONC 33 g/dl (31.0-36.0); MEAN CORPUSCULAR VOLUME 80 fL (80-96); MONOCYTES # (AUTO) 0.5 K/uL (0.1-1.30); NEUTROPHILS # (AUTO) 3.8 K/uL (1.8-8.9); NEUTROPHILS % (AUTO) 77.4 % (43.0-81.0); PLATELET COUNT (AUTO) 276 K/uL (150-450); RED BLOOD CELL COUNT(AUTO) 4.52 MIL/uL (4.5-6.0); RED CELL DISTRIBUTION WIDTH 19.6 % (11.5-15.0); WHITE BLOOD COUNT (AUTO) 4.8 K/uL (4.3-11.0)
[2024-06-08] MEDS: ASPIRIN 325 MG TABLET PO ONE (08:39)
[2024-06-08 08:40] LABS: CARBON DIOXIDE 24 mmol/L (21-32); CHLORIDE 102 mmol/L (98-107); CREATININE 0.8 mg/dL (0.6-1.3); GLUCOSE 113 mg/dL (74-106); POTASSIUM 3.2 mmol/L (3.5-5.1); SODIUM SERUM 137 mmol/L (136-145); UREA NITROGEN, BLOOD 12 mg/dL (7-18)
[2024-06-08] MEDS ORDERED: POTASSIUM CHLORIDE 20 MEQ TAB.PRT.SR PO ONE (09:01)
[2024-06-08] MEDS: POTASSIUM CHLORIDE 20 MEQ TAB.PRT.SR PO ONE (09:03)
[2024-06-08 11:04] VITALS: BP 123/78; TEMP 98.2; O2SAT 98
== END 2024-06-08 11:05 | disposition home or self-care (01) ==
LOC: ER 07:13
DX: R07.89 Other chest pain (principal); Z79.899 Other long term (current) drug therapy
CPT/HCPCS: 36415; 71045-TC; 80048-TC; 84484-TC; 85025-TC; G0480

== ENCOUNTER 2024-12-30 18:48 | Inpatient (IN) | payer OTHER ==
[~2024-12-30] VITALS: Ht 157.5 cm; Wt 48.1 kg
[2024-12-30] MEDS ORDERED: FAMOTIDINE/PF INJ 20 MG/2 ML VIAL IV ONE (19:39)
[2024-12-30] MEDS ORDERED: ONDANSETRON HCL/PF 4 MG/2 ML VIAL ONE (19:39)
[2024-12-30] MEDS ORDERED: LORAZEPAM INJ 2 MG/ML VIAL ONE ×2 (19:40→21:37)
[2024-12-30 19:44] LABS: BASOPHILS # (AUTO) 0.1 K/uL (0.0-0.2); BASOPHILS % (AUTO) 0.9 % (0.0-2.0); HEMATOCRIT 34 % (39-51); HEMOGLOBIN 10.2 g/dL (13.5-17.5); LYMPHOCYTES # (AUTO) 0.6 K/uL (0.8-4.8); MEAN CORPUSCULAR HEMOGLOBIN 23 PG (26.0-33.0); MEAN CORPUSCULAR HGB CONC 30 g/dl (31.0-36.0); MEAN CORPUSCULAR VOLUME 76 fL (80-96); MONOCYTES # (AUTO) 0.8 K/uL (0.1-1.30); MONOCYTES % (AUTO) 6.6 % (2.0-12.0); NEUTROPHILS # (AUTO) 10.4 K/uL (1.8-8.9); NEUTROPHILS % (AUTO) 87.5 % (43.0-81.0); PLATELET COUNT (AUTO) 174 K/uL (150-450); RED BLOOD CELL COUNT(AUTO) 4.52 MIL/uL (4.5-6.0); RED CELL DISTRIBUTION WIDTH 21.3 % (11.5-15.0); WHITE BLOOD COUNT (AUTO) 11.9 K/uL (4.3-11.0)
[2024-12-30] MEDS: FAMOTIDINE/PF INJ 20 MG/2 ML VIAL IV ONE (19:47)
[2024-12-30] MEDS: ONDANSETRON HCL/PF 4 MG/2 ML VIAL IVP ONE (19:47)
[2024-12-30] MEDS: LORAZEPAM INJ 2 MG/ML VIAL IV ONE ×2 (19:48→21:39)
[2024-12-30] MEDS: IV NS 0.9% 1,000 ML BAG IV ONE ×2 (19:48→21:39)
[2024-12-30 19:59] LABS: CALCIUM, SERUM 9.4 mg/dL (8.5-10.1); CARBON DIOXIDE 16 mmol/L (21-32); CHLORIDE 99 mmol/L (98-107); CREATININE 1.4 mg/dL (0.6-1.3); GLUCOSE 228 mg/dL (74-106); POTASSIUM 3.6 mmol/L (3.5-5.1); SODIUM SERUM 141 mmol/L (136-145); UREA NITROGEN, BLOOD 8 mg/dL (7-18)
[2024-12-30 20:05] LABS: ALANINE AMINOTRANSFERASE 243 U/L (12-78); ALKALINE PHOSPHATASE 188 U/L (46-116); ASPARTATE AMINOTRANSFERASE 376 U/L (15-37); BILIRUBIN,DIRECT 0.3 mg/dL (0.0-0.2); BILIRUBIN,TOTAL 0.8 mg/dL (0.2-1.0); LIPASE 136 U/L (16-77); TOTAL PROTEIN, SERUM 7.8 g/dL (6.4-8.2)
[2024-12-30] MEDS ORDERED: ONDANSETRON HCL/PF 4 MG/2 ML VIAL IVP PRN (23:30)
[2024-12-30] MEDS ORDERED: MAGNESIUM HYDROXIDE 30 ML UDC PO PRN (23:30)
[2024-12-30] MEDS ORDERED: ZOLPIDEM TARTRATE 5 MG TABLET PO PRN (23:30)
[2024-12-30] MEDS: CHLORDIAZEPOXIDE HCL 25 MG CAPSULE PO SCH (23:30)
[2024-12-30] MEDS ORDERED: Z GUARD REMEDY 4 OZ OINT TP PRN (23:30)
[2024-12-30] MEDS ORDERED: MAG HYDROX/AL HYDROX/SIMETH 30 ML UDC PO PRN (23:30)
[2024-12-31 03:25] VITALS: BP 133/82; TEMP 99.7; O2SAT 97
[2024-12-31 04:30] VITALS: BP 133/82; TEMP 97.7; O2SAT 97
[2024-12-31] MEDS: IV D5/0.45 NACL 1,000 ML IV PRN (04:32)
[2024-12-31 07:03] LABS: BASOPHILS # (AUTO) 0.1 K/uL (0.0-0.2); HEMATOCRIT 27 % (39-51); HEMOGLOBIN 8.4 g/dL (13.5-17.5); LYMPHOCYTES # (AUTO) 0.3 K/uL (0.8-4.8); LYMPHOCYTES % (AUTO) 3.9 % (20.0-44.0); MEAN CORPUSCULAR HEMOGLOBIN 23 PG (26.0-33.0); MEAN CORPUSCULAR HGB CONC 31 g/dl (31.0-36.0); MEAN CORPUSCULAR VOLUME 75 fL (80-96); MONOCYTES # (AUTO) 0.5 K/uL (0.1-1.30); MONOCYTES % (AUTO) 7.9 % (2.0-12.0); NEUTROPHILS # (AUTO) 5.9 K/uL (1.8-8.9); NEUTROPHILS % (AUTO) 87.2 % (43.0-81.0); PLATELET COUNT (AUTO) 108 K/uL (150-450); RED BLOOD CELL COUNT(AUTO) 3.58 MIL/uL (4.5-6.0); RED CELL DISTRIBUTION WIDTH 21.5 % (11.5-15.0); WHITE BLOOD COUNT (AUTO) 6.8 K/uL (4.3-11.0)
[2024-12-31 07:30] LABS: ALBUMIN 3.2 g/dL (3.4-5.0); BILIRUBIN,DIRECT 0.2 mg/dL (0.0-0.2); BILIRUBIN,TOTAL 0.6 mg/dL (0.2-1.0); CALCIUM, SERUM 8.7 mg/dL (8.5-10.1); CREATININE 0.8 mg/dL (0.6-1.3); PHOSPHORUS 3.1 mg/dL (2.5-4.9); POTASSIUM 3.5 mmol/L (3.5-5.1); TOTAL PROTEIN, SERUM 6.4 g/dL (6.4-8.2)
[2024-12-31 08:07] LABS: THYROID STIMULATING HORMONE 1.32 uIU/mL (0.358-3.74)
[2024-12-31] MEDS: Thiamine 100 MG in IV D5W 50 ML IV SCH (09:00)
[2024-12-31] MEDS: PANTOPRAZOLE 40 MG VIAL IV SCH (09:00)
[2024-12-31] MEDS: Folic acid 1 MG in IV D5W 50 ML IV SCH (09:00)
[2024-12-31] MEDS: LORAZEPAM INJ 2 MG/ML VIAL IV PRN (09:03)
[2024-12-31] MEDS: ACETAMINOPHEN 325 MG TABLET PO PRN (13:15)
[2024-12-31 20:00] VITALS: BP 111/72; TEMP 98.2; TEMP 98.6; O2SAT 98
[2025-01-01] VITALS (7 sets, daily range): BP systolic 108–120; BP diastolic 76–96; TEMP 97.9–100; O2SAT 97–99
[2025-01-01 07:25] LABS: EOSINOPHILS # (AUTO) 0.1 K/uL (0.0-0.7); EOSINOPHILS % (AUTO) 2.9 % (0.0-6.0); HEMATOCRIT 27 % (39-51); HEMOGLOBIN 8.3 g/dL (13.5-17.5); LYMPHOCYTES # (AUTO) 0.5 K/uL (0.8-4.8); LYMPHOCYTES % (AUTO) 10.4 % (20.0-44.0); MEAN CORPUSCULAR HEMOGLOBIN 23 PG (26.0-33.0); MEAN CORPUSCULAR HGB CONC 31 g/dl (31.0-36.0); MEAN CORPUSCULAR VOLUME 74 fL (80-96); MONOCYTES # (AUTO) 0.4 K/uL (0.1-1.30); MONOCYTES % (AUTO) 7.9 % (2.0-12.0); NEUTROPHILS # (AUTO) 3.6 K/uL (1.8-8.9); NEUTROPHILS % (AUTO) 77.8 % (43.0-81.0); PLATELET COUNT (AUTO) 126 K/uL (150-450); RED BLOOD CELL COUNT(AUTO) 3.64 MIL/uL (4.5-6.0); RED CELL DISTRIBUTION WIDTH 21.4 % (11.5-15.0); WHITE BLOOD COUNT (AUTO) 4.7 K/uL (4.3-11.0)
[2025-01-01 08:06] LABS: BILIRUBIN,TOTAL 0.4 mg/dL (0.2-1.0); CALCIUM, SERUM 8.4 mg/dL (8.5-10.1); CREATININE 0.7 mg/dL (0.6-1.3); POTASSIUM 3.2 mmol/L (3.5-5.1); TOTAL PROTEIN, SERUM 6.3 g/dL (6.4-8.2)
[2025-01-01 08:10] LABS: BILIRUBIN,DIRECT 0.2 mg/dL (0.0-0.2); BILIRUBIN,TOTAL 0.4 mg/dL (0.2-1.0); TOTAL PROTEIN, SERUM 6.3 g/dL (6.4-8.2)
[2025-01-01 08:16] LABS: THYROID STIMULATING HORMONE 6.37 uIU/mL (0.358-3.74)
[2025-01-01] MEDS: POTASSIUM CHLORIDE 20 MEQ TAB.PRT.SR PO ONE (09:22)
[2025-01-01] MEDS: THIAMINE HCL 100 MG TABLET PO SCH (09:22)
[2025-01-01] MEDS: FOLIC ACID 1 MG TABLET PO SCH (09:23)
[2025-01-01 11:02] LABS: EOSINOPHILS % (MANUAL) 1 % (0-4); LYMPHOCYTES % (MANUAL) 11 % (16-48); MONOCYTES % (MANUAL) 7 % (0-11.0); NEUTROPHILS % (MANUAL) 81 (42-76); PLATELET ESTIMATE DECREASED
[2025-01-01 11:03] LABS: ANISOCYTOSIS 1+; HYPOCHROMASIA 1+
[2025-01-02] VITALS: BP 112/82; TEMP 98.4; O2SAT 97
[2025-01-02 04:00] VITALS: BP 108/74; TEMP 98.2; O2SAT 97
[2025-01-02 08:00] VITALS: BP 110/72; TEMP 98.4; O2SAT 98
[2025-01-02 08:05] LABS: BASOPHILS # (AUTO) 0.1 K/uL (0.0-0.2); BASOPHILS % (AUTO) 1.6 % (0.0-2.0); EOSINOPHILS # (AUTO) 0.1 K/uL (0.0-0.7); EOSINOPHILS % (AUTO) 2.8 % (0.0-6.0); HEMATOCRIT 29 % (39-51); HEMOGLOBIN 8.9 g/dL (13.5-17.5); LYMPHOCYTES # (AUTO) 0.7 K/uL (0.8-4.8); LYMPHOCYTES % (AUTO) 13.6 % (20.0-44.0); MEAN CORPUSCULAR HEMOGLOBIN 23 PG (26.0-33.0); MEAN CORPUSCULAR HGB CONC 31 g/dl (31.0-36.0); MEAN CORPUSCULAR VOLUME 74 fL (80-96); MONOCYTES # (AUTO) 0.7 K/uL (0.1-1.30); MONOCYTES % (AUTO) 15.3 % (2.0-12.0); NEUTROPHILS # (AUTO) 3.2 K/uL (1.8-8.9); NEUTROPHILS % (AUTO) 66.7 % (43.0-81.0); PLATELET COUNT (AUTO) 167 K/uL (150-450); RED BLOOD CELL COUNT(AUTO) 3.86 MIL/uL (4.5-6.0); RED CELL DISTRIBUTION WIDTH 21.1 % (11.5-15.0); WHITE BLOOD COUNT (AUTO) 4.8 K/uL (4.3-11.0)
[2025-01-02 08:56] LABS: ALBUMIN 3.1 g/dL (3.4-5.0); BILIRUBIN,TOTAL 0.4 mg/dL (0.2-1.0); CREATININE 0.6 mg/dL (0.6-1.3); POTASSIUM 3.7 mmol/L (3.5-5.1); TOTAL PROTEIN, SERUM 6.8 g/dL (6.4-8.2)
[2025-01-02 09:21] LABS: CALCIUM, SERUM 8.8 mg/dL (8.5-10.1)
[2025-01-02 10:54] LABS: ANISOCYTOSIS 2+; EOSINOPHILS % (MANUAL) 3 % (0-4); HYPOCHROMASIA 1+; LYMPHOCYTES % (MANUAL) 11 % (16-48); MONOCYTES % (MANUAL) 13 % (0-11.0); NEUTROPHILS % (MANUAL) 73 (42-76); PLATELET ESTIMATE ADEQUATE
[2025-01-02 16:00] VITALS: BP 122/74; TEMP 98; O2SAT 97
[2025-01-02 20:00] VITALS: BP 119/78; TEMP 98.1; O2SAT 98
[2025-01-03 06:26] LABS: BASOPHILS # (AUTO) 0.1 K/uL (0.0-0.2); BASOPHILS % (AUTO) 1.6 % (0.0-2.0); EOSINOPHILS # (AUTO) 0.2 K/uL (0.0-0.7); EOSINOPHILS % (AUTO) 3.8 % (0.0-6.0); HEMATOCRIT 31 % (39-51); HEMOGLOBIN 9.3 g/dL (13.5-17.5); LYMPHOCYTES # (AUTO) 0.7 K/uL (0.8-4.8); LYMPHOCYTES % (AUTO) 14.4 % (20.0-44.0); MEAN CORPUSCULAR HEMOGLOBIN 23 PG (26.0-33.0); MEAN CORPUSCULAR HGB CONC 30 g/dl (31.0-36.0); MEAN CORPUSCULAR VOLUME 75 fL (80-96); MONOCYTES % (AUTO) 21.1 % (2.0-12.0); NEUTROPHILS # (AUTO) 2.8 K/uL (1.8-8.9); NEUTROPHILS % (AUTO) 59.1 % (43.0-81.0); PLATELET COUNT (AUTO) 216 K/uL (150-450); RED CELL DISTRIBUTION WIDTH 21.4 % (11.5-15.0); WHITE BLOOD COUNT (AUTO) 4.8 K/uL (4.3-11.0)
[2025-01-03 06:56] LABS: ALBUMIN 3.1 g/dL (3.4-5.0); BILIRUBIN,TOTAL 0.4 mg/dL (0.2-1.0); CALCIUM, SERUM 8.8 mg/dL (8.5-10.1); CREATININE 0.7 mg/dL (0.6-1.3); MAGNESIUM 2.2 mg/dL (1.8-2.4); TOTAL PROTEIN, SERUM 6.9 g/dL (6.4-8.2)
[2025-01-03 09:15] LABS: PLATELET ESTIMATE ADEQUATE
[2025-01-03 09:19] LABS: EOSINOPHILS % (MANUAL) 3 % (0-4); LYMPHOCYTES % (MANUAL) 17 % (16-48); MONOCYTES % (MANUAL) 11 % (0-11.0); NEUTROPHILS % (MANUAL) 69 (42-76)
[2025-01-03 09:20] LABS: ANISOCYTOSIS 1+; HYPOCHROMASIA 1+
[2025-01-03 09:21] LABS: STOMATOCYTES FEW
[2025-01-03] MEDS ORDERED: LORA-259 PO (10:01)
== END 2025-01-03 11:30 | disposition home or self-care (01) | DRG 241 ==
LOC: ER 19:37 → TELE 12-31 02:29 → MED 01-02 14:27
PROVIDERS: ADMIT Internal Medicine; ATTEND Internal Medicine
DX: K29.70 Gastritis, unspecified, without bleeding (principal); N17.0 Acute kidney failure with tubular necrosis; D69.59 Other secondary thrombocytopenia; D72.829 Elevated white blood cell count, unspecified; F15.10 Other stimulant abuse, uncomplicated; D50.9 Iron deficiency anemia, unspecified; E86.0 Dehydration; F10.139 Alcohol abuse with withdrawal, unspecified; S01.01XA Laceration without foreign body of scalp, initial encounter; W19.XXXA Unspecified fall, initial encounter; Y92.9 Unspecified place or not applicable; Y90.0 Blood alcohol level of less than 20 mg/100 ml; Z79.899 Other long term (current) drug therapy; Z59.00 Homelessness unspecified; F41.9 Anxiety disorder, unspecified; R74.01 Elevation of levels of liver transaminase levels
CPT/HCPCS: 36415; 70450-TC; 71045-TC; 80048-TC; 80053-TC; 80076-TC; 83540-TC; 83690-TC; 83735-TC; 84100-TC; 84443-TC; 84484-TC; 85025-TC; 86850-TC; 87081-TC; 97110-TC; 97116-TC; 97530-TC; A4223; G0378; G0480; J2060; J2405; J2470; J3411; J3490; J7030; J7060

== ENCOUNTER 2025-06-25 05:59 | Emergency (ER) | payer OTHER ==
[~2025-06-25] VITALS: Ht 160 cm; Wt 68.0 kg
[~2025-06-25 05:59] MED LIST changes: -FOLI0.8T3 PO; -THIA100T88 PO
[2025-06-25] MEDS ORDERED: KETOROLAC TROMETHAMINE 15 MG/ML VIAL ONE (06:36)
[2025-06-25] MEDS ORDERED: ONDANSETRON HCL/PF 4 MG/2 ML VIAL ONE (06:37)
[2025-06-25] MEDS ORDERED: PANTOPRAZOLE 40 MG VIAL ONE (06:37)
[2025-06-25 06:55] LABS: PLATELET COUNT (AUTO) 261 K/uL (150-450); RED BLOOD CELL COUNT(AUTO) 4.78 MIL/uL (4.5-6.0); RED CELL DISTRIBUTION WIDTH 22.4 % (11.5-15.0); WHITE BLOOD COUNT (AUTO) 4.8 K/uL (4.3-11.0)
[2025-06-25] MEDS: PANTOPRAZOLE 40 MG VIAL IV ONE (07:00)
[2025-06-25] MEDS: IV NS 0.9% 1,000 ML BAG IV ONE (07:00)
[2025-06-25] MEDS: ONDANSETRON HCL/PF 4 MG/2 ML VIAL IVP ONE (07:01)
[2025-06-25] MEDS: KETOROLAC TROMETHAMINE 15 MG/ML VIAL IV ONE (07:01)
[2025-06-25 07:02] LABS: CALCIUM, SERUM 8.0 mg/dL (8.5-10.1); CREATININE 0.8 mg/dL (0.6-1.3); SODIUM SERUM 141 mmol/L (136-145); UREA NITROGEN, BLOOD 16 mg/dL (7-18)
[2025-06-25 07:11] LABS: ASPARTATE AMINOTRANSFERASE 48 U/L (15-37); TOTAL PROTEIN, SERUM 7.0 g/dL (6.4-8.2)
[2025-06-25] MEDS ORDERED: CT SWABBABLE VALVE TRANS SET 1 EA INFUS.SET MC ONE (07:18)
[2025-06-25] MEDS ORDERED: IOHEXOL-300 100 ML VIAL IV ONE (07:19)
[2025-06-25] MEDS ORDERED: IV NS 0.9% 250 ML IV ONE (07:19)
[2025-06-25] MEDS ORDERED: FAMO-131 PO (07:59)
[2025-06-25] MEDS ORDERED: PANT40TA2 PO (07:59)
[2025-06-25] MEDS ORDERED: MAG HYDROX/AL HYDROX/SIMETH 30 ML UDC ONE (08:28)
[2025-06-25] MEDS ORDERED: LIDOCAINE VISCOUS 2% UD 15 ML UDC ONE (08:29)
[2025-06-25] MEDS: MAG HYDROX/AL HYDROX/SIMETH 30 ML UDC PO ONE (08:29)
[2025-06-25] MEDS: LIDOCAINE VISCOUS 2% UD 15 ML UDC MM ONE (08:29)
[2025-06-25] MEDS ORDERED: PHENOBARBITAL SODIUM 130 MG/ML VIAL ONE (09:43)
[2025-06-25] MEDS ORDERED: PHENOBARBITAL SODIUM 130 MG/ML VIAL IV ONE (10:00)
[2025-06-25] MEDS ORDERED: PHENOBARBITAL SODIUM IV ONE (10:00)
[2025-06-25] MEDS ORDERED: NS 0.9% IV ONE (10:00)
[2025-06-25] MEDS: PHENOBARBITAL SODIUM IV ONE (10:06)
[2025-06-25] MEDS: NS 0.9% IV ONE (10:06)
[2025-06-25 13:21] VITALS: BP 112/79; TEMP 98.3; O2SAT 98
== END 2025-06-25 13:21 | disposition home or self-care (01) ==
LOC: ER 06:04
DX: K21.00 Gastro-esophageal reflux disease with esophagitis, without bleeding (principal); R07.89 Other chest pain; R11.2 Nausea with vomiting, unspecified; R19.7 Diarrhea, unspecified; K44.9 Diaphragmatic hernia without obstruction or gangrene
CPT/HCPCS: 99285; 74177; 96365; 96375; 71045; 96361; 93005; 85025; 80048; 83690; 80076; 36415; 84484; J1885; J2560; J2405; J7030 ×3; J7050; J2470; A4223; Q9967